=== PATIENT | male | born 1950 | race Caucasian/White ===

== ENCOUNTER 2017-03-09 11:37 | Emergency (ER) | payer MEDICARE ==
[2017-03-09] MEDS ORDERED: LORazepam INJ* 2 MG/ML 1 ML VIAL IV ONE (13:46)
[2017-03-09] MEDS ORDERED: Ketorolac INJ* 30 MG/ML 1 ML VIAL IV ONE (13:46)
--- NOTE | 2017-03-09 14:15 | RAD ---
INDICATION: Left-sided headache. COMPARISON: Comparison is made with a prior MRI of the brain from September 11, 2016. TECHNIQUE: Contiguous axial sections of the brain were obtained from the skull base to the vertex without contrast. FINDINGS: The ventricles, cisterns and sulci are enlarged consistent with age-related atrophy. There are small areas of decreased density in the subcortical and periventricular white matter suggestive of mild chronic small vessel ischemic changes. No other focal abnormality or mass effect is seen. There is no evidence for hemorrhage. There is mucosal thickening within the ethmoid air cells and air-fluid level within the left maxillary sinus suggestive of acute sinusitis. The sphenoid, frontal sinuses appear clear. The mastoid air cells appear clear. IMPRESSION: 1. NO EVIDENCE FOR ACUTE INTRACRANIAL NORMALITY. 2. FINDINGS SUGGESTIVE OF ACUTE LEFT MAXILLARY SINUSITIS.
[2017-03-09 14:36] LABS: Hematocrit 43 % (42-52); Hemoglobin 14.3 g/dl (14.0-18.0); Mean Corpuscular HGB Conc 34 g/dl (31-36); Mean Corpuscular Hemoglobin 28 pg (27-31); Mean Corpuscular Volume 83 fL (80-94); Mean Platelet Volume 8 um3 (7.4-10.4); Red Blood Count 5.14 10^6/ul (4.0-5.4); Red Cell Distribution Width 15 % (10.5-15); White Blood Count 8.9 10^3/ul (3.5-10.8)
[2017-03-09 14:51] LABS: BUN/Creatinine Ratio 15.2 (8-20); Calcium 9.9 mg/dL (8.6-10.3); EGFR African American 105.2 (>60); EGFR Non-African American 81.8 (>60); Globulin 3.9 g/dL (2-4); Potassium 4.3 mmol/L (3.5-5.0); Total Bilirubin 0.8 mg/dL (0.2-1.0); Total Protein 7.9 g/dL (6.4-8.9)
[2017-03-09 15:35] LABS: Erythrocyte Sed Rate 49 mm/Hr (0-40)
[2017-03-09 15:39] VITALS: BP 129/60
--- NOTE | 2017-03-09 22:06 | ED ---
Erasto Valentin Aidan, scribed for Dilip Herron MD on 03/09/17 at 1448 . Headache - HPI Summary HPI Summary: 67 y/o male presents to the ED via transfer from [facility] for evaluation of an acute, constant, moderate (5-6/10), back left-sided VERDIN that has persisted since 0300 this morning. Though the pain is steady, moving his neck causes the pain to radiate down the back of his neck. Hx of melanoma, for which he is taking Optivo. Pt denies any allergies to medications and requests something for his pain. Associated symptoms include some left-sided facial pain. - History Of Current Complaint Chief Complaint: EDFacialInjury Stated Complaint: FACIAL PAIN Time Seen by Provider: 03/09/17 13:27 Hx Obtained From: Patient Last Known Well Date: unknown Onset/Duration: Sudden Onset, Started hours ago, Still Present Initially Headache Was: Moderate Currently Pain Is: Moderate Timing: Constant Character: Unable To Describe Location of Headache: Other: - back left side Radiates to: radiates down neck when Pt turns neck Aggravating Factor: Other - turning neck causes pain to radiate down the neck Allevating Factors: Other (Noted In Comments) - unknown Associated Signs And Symptoms: Other (Noted In Comments) - some left-sided facial pain - Risk Factors SDH Risk Factors: Male Temporal Arteritis Risk Factors: - Allergies/Home Medications Allergies/Adverse Reactions: Allergies Allergy/AdvReac Type Severity Reaction Status Date / Time No Known Allergies Allergy Verified 10/12/16 07:36 Home Medications: Home Medications Glimepiride (NF) 2 mg PO BID 03/09/17 [History Confirmed 03/09/17] Lisinopril TAB* [Prinivil TAB*] 20 mg PO DAILY 03/09/17 [History Confirmed 03/09] Warren-3 Fatty Acids [Fish Oil 1200 mg] 1 cap PO BID 03/09/17 [History Confirmed 03/09/17] Rosuvastatin (NF) [Crestor (NF)] 5 mg PO DAILY 03/09/17 [History Confirmed 03/09] metFORMIN* [Glucophage 1000 MG TAB *] 1,000 mg PO BID WITH MEALS 03/09/17 [ History Confirmed 03/09/17] PMH/Surg Hx/FS Hx/Imm Hx Endocrine/Hematology History: Reports: Hx Diabetes - TYPE 2 Cardiovascular History: Reports: Hx Hypertension Denies: Hx Pacemaker/ICD History: Denies: Hx Dialysis, Hx Renal Disease Sensory History: Denies: Hx Hearing Aid Psychiatric History: Denies: Hx Panic Disorder - Cancer History Cancer Type, Location and Year: MELANOMA Hx Chemotherapy: No Hx Radiation Therapy: No - Surgical History Surgery Procedure, Year, and Place: MELANOMA REMOVED - BACK. LYMPH NODE UNDER Rt ARM - REMOVED. PILONIDAL CYST Infectious Disease History: No Infectious Disease History: Denies: Traveled Outside the [place] in Last 30 Days - Family History Known Family History: Positive: Hypertension - Social History Occupation: Employed Full-time Lives: With Family Alcohol Use: None Substance Use Type: Reports: None Smoking Status (MU): Never Smoked Tobacco Review of Systems Constitutional: Negative Eyes: Negative ENT: Negative Cardiovascular: Negative Respiratory: Negative Gastrointestinal: Negative Genitourinary: Negative Musculoskeletal: Negative Skin: Negative Neurological: Other - some left-sided facial pain Positive: Headache. Negative: Weakness, Paresthesia, Numbness, Syncope, Slurred Speech Psychological: Normal All Other Systems Reviewed And Are Negative: Yes Physical Exam Triage Information Reviewed: Yes Vital Signs On Initial Exam: Initial Vitals Temp Pulse Resp BP Pulse Ox 97.4 F 57 18 166/62 98 03/09/17 11:43 03/09/17 11:43 03/09/17 11:43 03/09/17 11:43 03/09/17 11:43 Vital Signs Reviewed: Yes Appearance: Positive: Well-Appearing, No Pain Distress Skin: Positive: Warm, Skin Color Reflects Adequate Perfusion, Dry Head/Face: Positive: Normal Head/Face Inspection, Other - paracervical spasm, nontender over temporal artery, no trigger point Eyes: Positive: Normal ENT: Positive: Normal ENT inspection Neck: Positive: Supple, Nontender Respiratory/Lung Sounds: Positive: Clear to Auscultation, Breath Sounds Present Cardiovascular: Positive: RRR Abdomen Description: Positive: Nontender, Soft Bowel Sounds: Positive: Present Musculoskeletal: Positive: Normal Neurological: Positive: Normal, Sensory/Motor Intact, Alert, Oriented to Person Place, Time, CN Intact II-III, Reflexes Intact Psychiatric: Positive: Affect/Mood Appropriate - Ellen Coma Scale Coma Scale Total: 15 Diagnostics - Vital Signs Vital Signs Temp Pulse Resp BP Pulse Ox 03/09/17 14:18 16 03/09/17 12:28 97.4 F 57 18 166/62 98 03/09/17 11:43 97.4 F 57 18 166/62 98 - Laboratory Lab Results: Lab Results 03/09/17 Range/Units 14:15 WBC 8.9 (3.5-10.8) 10^3/ul RBC 5.14 (4.0-5.4) 10^6/ul Hgb 14.3 (14.0-18.0) g/dl Hct 43 (42-52) % MCV 83 (80-94) fL MCH 28 (27-31) pg MCHC 34 (31-36) g/dl RDW 15 (10.5-15) % Plt Count 165 (150-450) 10^3/ul MPV 8 (7.4-10.4) um3 Neut % (Auto) 66.8 (38-83) % Lymph % (Auto) 18.7 L (25-47) % Christian % (Auto) 9.9 H (1-9) % Eos % (Auto) 4.0 (0-6) % Baso % (Auto) 0.6 (0-2) % Absolute Neuts (auto) 6.0 (1.5-7.7) 10^3/ul Absolute Lymphs (auto) 1.7 (1.0-4.8) 10^3/ul Absolute Monos (auto) 0.9 H (0-0.8) 10^3/ul Absolute Eos (auto) 0.4 (0-0.6) 10^3/ul Absolute Basos (auto) 0.1 (0-0.2) 10^3/ul Absolute Nucleated RBC 0.01 10^3/ul Nucleated RBC % 0.1 ESR Pending Result Diagrams: 03/09/17 14:15 03/09/17 14:15 Lab Statement: Any lab studies that have been ordered have been reviewed, and results considered in the medical decision making process. - CT BRAIN CT CT Interpretation: No Acute Changes - IMPRESSION: 1. NO EVIDENCE FOR ACUTE INTRACRANIAL NORMALITY. 2. FINDINGS SUGGESTIVE OF ACUTE LEFT MAXILLARY SINUSITIS. CT Interpretation Completed By: Radiologist Headache Course/Dx - Course Course Of Treatment: This is a 67 y/o male presenting via transfer from [facility] for evaluation of an acute, constant, moderate, back left- sided VERDIN and left-sided facial pain. He was found on DT to have a left-sided acute sinusitis and I think his headache is a combination of that and muscle tension on that side as he is tender. - Diagnoses Provider Diagnoses: Sinusitis Discharge - Discharge Plan Condition: Stable Disposition: HOME Discharge Disposition Comment: Please follow up with your primary care physician within 2 days. Prescriptions: Amoxicillin/Clavulanate TAB* [Augmentin TAB 875*] 1,000 mg PO BID #20 tab HYDROcodone/ACETAMIN 5-325 MG* [Alva 5-325 TAB*] 1 tab PO Q6H PRN #20 tab MDD 4 PRN Reason: Pain Patient Education Materials: Sinusitis (ED) Referrals: Dionicio Keenan MD [Primary Care Provider] - The documentation as recorded by the Erasto moise Aidan accurately reflects the service I personally performed and the decisions made by me, Dilip Herron MD.
== END 2017-03-09 16:20 | disposition home or self-care (01) ==
LOC: ED 11:37
DX: J32.9 Chronic sinusitis, unspecified (principal)
CPT/HCPCS: 36415; 70450; 80053; 85025; 85652; 96374; 99283; J1885; J2060

== ENCOUNTER 2018-03-30 19:04 | Inpatient (IN) | payer MEDICARE ==
[2018-03-30] MEDS ORDERED: NS 0.9% 1000 ML*IV.FLUID IV ONE (19:30)
[2018-03-30 20:02] LABS: ABS Basophils 0 10^3/ul (0-0.2); ABS Eosinophils 0.3 10^3/ul (0-0.6); ABS Lymphocytes 0.7 10^3/ul (1.0-4.8); ABS Monocytes 0.3 10^3/ul (0-0.8); ABS Neutrophils 3.7 10^3/ul (1.5-7.7); ABS Nucleated RBC 0 10^3/ul; Eosinophil % 5.2 % (0-6); Hematocrit 42 % (42-52); Hemoglobin 14.1 g/dl (14.0-18.0); Mean Corpuscular HGB Conc 34 g/dl (31-36); Mean Corpuscular Hemoglobin 29 pg (27-31); Mean Corpuscular Volume 87 fL (80-94); Mean Platelet Volume 7.1 um3 (7.4-10.4); Nucleated Red Blood Cells % 0.1; Platelet Count 182 10^3/ul (150-450); Red Blood Count 4.81 10^6/ul (4.0-5.4); Red Cell Distribution Width 14 % (10.5-15); White Blood Count 5.1 10^3/ul (3.5-10.8)
[2018-03-30 20:20] LABS: EGFR Non-African American 28.9 (>60)
--- NOTE | 2018-03-30 20:32 | RAD ---
HISTORY: Fever and cancer patient COMPARISONS: October 12, 2016 VIEWS: 4: Frontal dual-energy and lateral views of the chest. FINDINGS: CARDIOMEDIASTINAL SILHOUETTE: The cardiomediastinal silhouette is normal. NAOMI: The naomi are normal. PLEURA: There is blunting of left costophrenic angle. LUNG PARENCHYMA: The lungs are clear. ABDOMEN: The upper abdomen is clear. There is no subphrenic gas. BONES AND SOFT TISSUES: Degenerative changes are noted along the spine. OTHER: A left-sided chest port is noted from a subclavian approach with the tip overlying the cavoatrial junction. IMPRESSION: SMALL LEFT PLEURAL EFFUSION VERSUS CHRONIC PLEURAL THICKENING.
[2018-03-30] MEDS ORDERED: NS 0.9% 1000 ML* 1,000 ML IV ONE (20:50)
[2018-03-30] MEDS ORDERED: Sodium Polystyrene ORAL.SOL* 15 GM/60 ML BTL PO ONE (21:42)
[2018-03-30] MEDS ORDERED: oxyCODONE TAB* 5 MG TAB PO PRN (21:44)
[2018-03-30] MEDS ORDERED: Dextrose 50% Syringe 50 ML* 25 GM/50 ML SYRINGE IV PUSH PRN (21:44)
[2018-03-30] MEDS ORDERED: Acetaminophen TAB* 325 MG PO PRN (21:46)
[2018-03-30] MEDS ORDERED: Ondansetron 40 MG VIAL* 2 MG/ML 20 ML VIAL IV PRN (22:25)
--- NOTE | 2018-03-30 22:29 | ED ---
Alfredo Valentin Jennifer, scribed for Neal Ramírez MD on 03/30/18 at 2030 . HPI Febrile Illness - HPI Summary HPI Summary: The patient is a 68 year old male who presents with fever and generalized fatigue that began about 8 days ago. The patient states it all began when he was diagnosed with cellulitis in his right put and put on Bactrim 10 days ago. His PCP increased him from one pill twice a day to two pills twice a day 2 days later because his cellulitis had not improved, which is when the fever began. The patient then saw Dr. Worthington, burn out tender lace, where his labs showed his potassium levels was too high. Dr. Worthington recommended the patient come to the ED to recheck his potassium levels. Patient complains this feels similar to when he had walking pneumonia. He denies general pain, cough, and dysuria. - History of Current Complaint Chief Complaint: EDFever Hx Obtained From: Patient Onset/Duration: Started Days Ago - 8 days, Still Present Timing: Constant Initial Severity: Mild Current Severity: None Pain Intensity: 0 Pain Scale Used: 0-10 Numeric Aggravating Factors: Nothing Alleviating Factors: Nothing Associated Signs and Symptoms: Other: - high potassium, fever, generalized fatigue. NEG: general pain, cough, dysuria - Allergy/Home Medications Allergies/Adverse Reactions: Allergies Allergy/AdvReac Type Severity Reaction Status Date / Time No Known Allergies Allergy Verified 03/30/18 19:13 Home Medications: Home Medications Acarbose [Acarbose] 1 tab PO TID WITH MEALS 03/30/18 [History Confirmed 03/30/18 ] Oxycodone HCl [Oxycodone HCl] 1 tab PO Q8HR PRN 03/30/18 [History Confirmed ] Sulfamethox/Trimethoprim DS* [Bactrim DS 800/160 TAB*] 1 tab PO BID 03/30/18 [ History Confirmed 03/30/18] PMH/Surg Hx/FS Hx/Imm Hx Endocrine/Hematology History: Reports: Hx Diabetes - TYPE 2 Cardiovascular History: Reports: Hx Hypertension Denies: Hx Pacemaker/ICD History: Denies: Hx Dialysis, Hx Renal Disease Sensory History: Denies: Hx Hearing Aid Psychiatric History: Denies: Hx Panic Disorder - Cancer History Cancer Type, Location and Year: MELANOMA Hx Chemotherapy: No Hx Radiation Therapy: No - Surgical History Surgery Procedure, Year, and Place: MELANOMA REMOVED - BACK. LYMPH NODE UNDER Rt ARM - REMOVED. PILONIDAL CYST Infectious Disease History: No Infectious Disease History: Reports: Hx of Known/Suspected MRSA - right foot Denies: Traveled Outside the [place] in Last 30 Days - Family History Known Family History: Positive: Hypertension - Social History Alcohol Use: None Substance Use Type: Reports: None Smoking Status (MU): Never Smoked Tobacco Review of Systems Positive: Fever, Fatigue, Other - High potassium level Negative: Cough Negative: dysuria Negative: Myalgia All Other Systems Reviewed And Are Negative: Yes Physical Exam - Summary Physical Exam Summary: Appearance: Well-appearing, Well-nourished Skin: Warm Eyes: Normal ENT: Normal Neck: Supple, nontender Respiratory: Clear to auscultation Cardiovascular: Normal S1, S2. No murmurs. Normal distal pulses in tibial and radial bilaterally. Abdomen: Soft, nontender Musculoskeletal: Normal, Strength/ROM Intact Neurological: Normal, A&Ox3 Psychiatric: Normal General: No acute distress Triage Information Reviewed: Yes Vital Signs On Initial Exam: Initial Vitals Temp Pulse Resp BP Pulse Ox 101.0 F 51 16 128/61 100 03/30/18 19:09 03/30/18 19:09 03/30/18 19:09 03/30/18 19:09 03/30/18 19:09 Vital Signs Reviewed: Yes Diagnostics - Vital Signs Vital Signs Temp Pulse Resp BP Pulse Ox 03/30/18 19:09 101.0 F 51 16 128/61 100 - Laboratory Lab Results: Lab Results 03/30/18 03/30/18 Range/Units 19:51 19:51 WBC 5.1 (3.5-10.8) 10^3/ul RBC 4.81 (4.0-5.4) 10^6/ul Hgb 14.1 (14.0-18.0) g/dl Hct 42 (42-52) % MCV 87 (80-94) fL MCH 29 (27-31) pg MCHC 34 (31-36) g/dl RDW 14 (10.5-15) % Plt Count 182 (150-450) 10^3/ul MPV 7.1 L (7.4-10.4) um3 Neut % (Auto) 74.0 (38-83) % Lymph % (Auto) 14.0 L (25-47) % Henderson % (Auto) 6.1 (0-7) % Eos % (Auto) 5.2 (0-6) % Baso % (Auto) 0.7 (0-2) % Absolute Neuts (auto) 3.7 (1.5-7.7) 10^3/ul Absolute Lymphs (auto) 0.7 L (1.0-4.8) 10^3/ul Absolute Monos (auto) 0.3 (0-0.8) 10^3/ul Absolute Eos (auto) 0.3 (0-0.6) 10^3/ul Absolute Basos (auto) 0 (0-0.2) 10^3/ul Absolute Nucleated RBC 0 10^3/ul Nucleated RBC % 0.1 Sodium 127 L (139-145) mmol/L Potassium 5.7 H (3.5-5.0) mmol/L Chloride 99 L (101-111) mmol/L Carbon Dioxide 21 L (22-32) mmol/L Anion Gap 7 (2-11) mmol/L BUN 27 H (6-24) mg/dL Creatinine 2.26 H (0.67-1.17) mg/dL Est GFR ( Amer) 37.2 (>60) Est GFR (Non-Af Amer) 28.9 (>60) BUN/Creatinine Ratio 11.9 (8-20) Glucose 197 H (70-100) mg/dL Calcium 9.6 (8.6-10.3) mg/dL Total Bilirubin 0.50 (0.2-1.0) mg/dL AST 44 H (13-39) U/L ALT 46 (7-52) U/L Alkaline Phosphatase 40 (34-104) U/L Total Protein 7.8 (6.4-8.9) g/dL Albumin 4.0 (3.2-5.2) g/dL Globulin 3.8 (2-4) g/dL Albumin/Globulin Ratio 1.1 (1-3) Result Diagrams: 03/30/18 19:51 03/30/18 19:51 Lab Statement: Any lab studies that have been ordered have been reviewed, and results considered in the medical decision making process. - Radiology CXR Xray Interpretation: Positive (See Comments) - SMALL LEFT PLEURAL EFFUSION VERSUS CHRONIC PLEURAL THICKENING. Dr. Ramírez has reviewed this report. Radiology Interpretation Completed By: Radiologist - EKG 2119 Cardiac Rate: Bradycardia EKG Rhythm: Sinus Bradycardia - 56 BPM Ectopy: None EKG Interpretation: No acute ischemic ST changes Course/Dx - Course Assessment/Plan: Patient seen to have hyperkalemia, hyponatremia, and acute kidney injury on labs today. Currently in no acute distress, admitted for further workup and treatment - Diagnoses Provider Diagnoses: Hyperkalemia, Acute kidney injury, Hyponatremia - Provider Notifications Discussed Care Of Patient With: Adonay Craig Time Discussed With Above Provider: 21:38 Instructed by Provider To: Admit As Inpatient Discharge - Sign-Out/Discharge Documenting (check all that apply): Discharge/Admit/Transfer - Discharge Plan Condition: Stable Disposition: ADMITTED TO [facility] - Billing Disposition and Condition Condition: STABLE Disposition: [facility] The documentation as recorded by the Alfredo moise Jennifer accurately reflects the service I personally performed and the decisions made by , Neal Ramírez MD.
[2018-03-30] MEDS ORDERED: Vancomycin(*) 1,500 MG in NS 0.9% 250 ML* 250 ML IVPB ONE (23:00)
[2018-03-30] MEDS: NS 0.9% 1000 ML* 1,000 ML IV SCH (23:26)
[2018-03-30 23:41] LABS: Urine Appearance Cloudy; Urine Blood Negative (Negative); Urine Color Yellow; Urine Ketones Negative (Negative); Urine Protein Negative (Negative); Urine Urobilinogen Negative (Negative)
[2018-03-30] MEDS ORDERED: Famotidine IV* 10 MG/ML 2 ML (20 mg) IV SLOW PU ONE (23:58)
[2018-03-30] MEDS ORDERED: diPHENhydraMINE PO* 50 MG PO ONE (23:58)
[2018-03-31] MEDS ORDERED: diPHENhydraMINE PO* 50 MG ONE (00:13)
--- NOTE | 2018-03-31 00:38 | HP ---
CC: Dr. Dionicio Keenan * HISTORY AND PHYSICAL: DATE OF ADMISSION: 03/30/18 PRIMARY CARE PROVIDER: Dr. Dionicio Keenan. ATTENDING PHYSICIAN: Adonay Craig MD * (dictated by Chaparrita Mcgee NP) CHIEF COMPLAINT: Fever, right foot cellulitis. HISTORY OF PRESENT ILLNESS: Mr. Fuller is a 68-year-old male with past medical history significant for melanoma, diabetes mellitus, hypertension, hyperlipidemia, and a "leaky valve" who states that approximately 8 days ago he began having fevers and generalized fatigue. He states that he was seen at [facility] and was prescribed Cipro for a right foot cellulitis. He then followed up with his primary care provider who had done a wound culture and started him on Bactrim DS. The patient states that he had been taking that 2 pills twice a day until it was causing GI upset and then he was decreased to 1 pill twice daily. The patient reports a fever up to 101.7 at home. He was seen by his tripper, Dr. Worthington, where he had lab showing elevated potassium and it was recommended that he come to the emergency room to have his potassium level rechecked. The patient also complains of feeling similar to when he had a walking pneumonia in the past. He denies any cough or shortness of breath. He reports fevers, chills. Denies chest pain, shortness of breath, nausea, vomiting. He reports diarrhea a few days ago while taking the increased dose of Bactrim. He denies any urinary symptoms such as urgency, frequency. He feels as though he is able to fully empty his bladder. Due to Dr. Worthington's recommendation, he presented to the emergency room for further evaluation. While in the emergency room, he had labs showing a potassium of 5.7, which is down from 3 days prior when it was 5.9. His creatinine is elevated when compared to several days prior, at which time on 03/27/18, it was 1.9, on , it was 1.73, today is 2.26. The patient received blood cultures, a liter of IV fluid. He had a chest x-ray showing small left pleural effusion versus chronic pleural thickening. Due to his hyperkalemia and acute renal failure, the hospitalists were asked to evaluate the patient for admission. The patient states that he went to [place] and had a pedicure and they shaved a callus and opened up the skin on his right foot. PAST MEDICAL HISTORY: 1. Melanoma. 2. Diabetes mellitus. 3. Hyperlipidemia. 4. Hypertension. 5. "Leaky valve." PAST SURGICAL HISTORY: Status post excision of melanoma from his back. HOME MEDICATIONS: Include: 1. Oxycodone 5 mg oral every 8 hours as needed for pain. 2. Acarbose 1 tablet oral 3 times daily with meals. 3. Metformin 1000 mg oral twice daily. 4. Crestor 5 mg oral daily. 5. Fish oil 1200 mg oral twice daily. 6. Metoprolol succinate 100 mg oral daily. 7. Lisinopril 20 mg oral daily. 8. Glimepiride 2 mg oral twice daily. 9. Aspirin 81 mg oral daily. 10. Bactrim DS 1 tablet oral twice daily. ALLERGIES: No known drug allergies. FAMILY HISTORY: The patient denies any family history of coronary artery disease. His father and paternal grandmother had a history of diabetes. His father had a history of liver cancer. SOCIAL HISTORY: He denies tobacco use or recreational drug use. He reports that he quit drinking alcohol a few weeks ago, prior to that he drank up to daily. His , Geri Fuller, will be his surrogate decision maker in the event he is unable to make decisions for himself. REVIEW OF SYSTEMS: I performed an 11-point review of systems. All the pertinent positives and negatives are mentioned in the history of present illness. The remaining review of systems are negative. PHYSICAL EXAMINATION GENERAL APPEARANCE: The patient is alert, pleasant and appears to be in no acute distress. VITAL SIGNS: Temperature 100.7, heart rate 60, respiratory rate 17, O2 sat 97% on room air, blood pressure 118/75. HEENT: Normocephalic, atraumatic. Pupils are equal and reactive to light. Extraocular movements are intact. RESPIRATORY: There is no accessory muscle use. The lungs are clear to auscultation bilaterally. CARDIOVASCULAR: Regular rate and rhythm. S1 and S2 present. There are no murmurs, rubs, or gallops heard. ABDOMEN: Soft, large, and nontender. There are bowel sounds present x4. EXTREMITIES: There is no lower extremity edema. DP and PT pulses are 2+ and symmetric. MUSCULOSKELETAL: There is no clubbing or cyanosis noted. The patient exhibits good strength in all extremities. NEUROLOGICAL: The patient is alert and oriented x4. Cranial nerves II through XII are grossly intact. PSYCHOLOGICAL: The patient is calm and cooperative. SKIN: The patient is flush in his upper torso and face. On his right lateral foot near his fifth toe, he has peeled skin with mild erythema and what appears to be a diabetic foot ulcer at the base of his fifth toe on the ball of his foot. DIAGNOSTIC STUDIES/LABORATORY DATA: Sodium 127, potassium 5.7, chloride 99, CO2 of 21, BUN 27, creatinine 2.26, glucose 197. White blood cell count 5.1, hemoglobin 14.1, hematocrit 42, platelet count 182,000. EKG shows a sinus reyes and a rate of 56. There are no acute signs of ischemia. There are not peak T waves. There are no previous EKGs for comparison. Chest x-ray from today. Radiologist's impression: Small left pleural effusion versus chronic pleural thickening. IMPRESSION: Mr. Fuller is a 68-year-old male with past medical history significant for melanoma, diabetes mellitus, hypertension, hyperlipidemia, and a leaky valve, who presented to the emergency room with complaints of fever and generalized fatigue that started approximately 8 days ago. He was diagnosed with cellulitis and placed on Bactrim by his primary care provider for MRSA in his right lower extremity. He will be admitted as an observation for acute renal failure and MRSA cellulitis. ASSESSMENT/PLAN: 1. Acute renal failure. I suspect this is secondary to a combination of the patient becoming dehydrated, not feeling well in addition to taking double the maximum dose of Bactrim for several days in addition to taking his lisinopril and diabetes medications. The patient has already received a liter of fluid in the emergency room. We will continue IV hydration overnight. We will check a FENa, urinalysis and recheck his creatinine in the morning. We will avoid nephrotoxic agents, Bactrim and his antihyperglycemic medications will be held. 2. MRSA cellulitis. The patient has decreased erythema from the markings previously placed on his right foot and has minimal erythema at the lateral aspect of his foot near his fifth toe. He does have what could be a diabetic foot ulcer at the base of his left toe on his foot that he states is secondary to a wound from a pedicure. I am going to check an ESR and CRP; if they are elevated, I would recommend considering further imaging to evaluate for possible osteomyelitis. For now, I am going to place him on vancomycin. He has had blood cultures drawn. He does not have an elevated lactic acid. We will recheck CBC in the morning. He does not currently have leukocytosis. He was febrile in the emergency room. He is not meeting sepsis criteria at this time and is nontoxic appearing. We will attempt to get another wound culture on his foot today. 3. Hyperkalemia. I suspect this is secondary to acute renal failure. He will receive a dose of Kayexalate tonight and we will recheck his labs in the morning. 4. Diabetes. He will have fingersticks a.c. and h.s. He will be on a consistent carbohydrate diet. I am going to hold all of his home antihyperglycemic medications and just place him on a lispro sliding scale. 5. Hypertension. He will be continued on his metoprolol, but for now, I am going to hold his lisinopril in the setting of an acute renal failure. 6. Hyperlipidemia. He will be continued on a statin. 7. Fluids, electrolytes and nutrition: Consistent carbohydrate diet. 8. Code status. Full code. 9. DVT prophylaxis. He is at high risk and will have subcu heparin. 10. Disposition. Observation. TIME SPENT: Time for this admission was approximately 60 minutes, greater than half of that was spent with the patient and his discussing medications, past medical history, the events leading up to his arrival today, and performing a physical examination. The case has been reviewed with the attending , Dr. Craig, who agrees with the plan of care. Reviewed by CHAPARRITA MCGEE, AUTUMN-C 04/03/18 1543 [id number]/[facility] #: [id number] [place]ANCHO
[2018-03-31] MEDS ORDERED: Vancomycin per Pharmacy* NOTE FOLLOW UP PRN (02:31)
[2018-03-31] MEDS: Heparin VIAL(*) 5000 UNITS/ML VIAL (FIVE THOUSAND) SUBCUT SCH ×3 (05:38→21:05)
[2018-03-31 07:44] LABS: EGFR Non-African American 39.6 (>60)
[2018-03-31] MEDS: Aspirin EC TAB* 81 MG TAB.EC PO SCH (07:49)
[2018-03-31] MEDS: Metoprolol Succinate XL TAB* 100 MG PO SCH (07:49)
[2018-03-31] MEDS: Atorvastatin* 10 MG TAB PO SCH (07:49)
[2018-03-31] MEDS: NS 0.9% 1000 ML* 1,000 ML IV SCH (07:50)
[2018-03-31] MEDS: Insulin LISPRO* 1 UNITS UNIT SUBCUT SCH ×3 (07:53→17:45)
[2018-03-31 08:03] LABS: ABS Basophils 0 10^3/ul (0-0.2); ABS Eosinophils 0.2 10^3/ul (0-0.6); ABS Lymphocytes 0.8 10^3/ul (1.0-4.8); ABS Monocytes 0.3 10^3/ul (0-0.8); ABS Neutrophils 1.9 10^3/ul (1.5-7.7); ABS Nucleated RBC 0 10^3/ul; Eosinophil % 5.3 % (0-6); Hematocrit 38 % (42-52); Hemoglobin 12.6 g/dl (14.0-18.0); Lymphocyte % 25.8 % (25-47); Mean Corpuscular HGB Conc 34 g/dl (31-36); Mean Corpuscular Hemoglobin 29 pg (27-31); Mean Corpuscular Volume 86 fL (80-94); Mean Platelet Volume 7.5 um3 (7.4-10.4); Nucleated Red Blood Cells % 0.4; Platelet Count 142 10^3/ul (150-450); Red Blood Count 4.35 10^6/ul (4.0-5.4); Red Cell Distribution Width 14 % (10.5-15); White Blood Count 3.2 10^3/ul (3.5-10.8)
--- NOTE | 2018-03-31 10:28 | PN ---
Subjective Date of Service: 03/31/18 Interval History: denies chest pain or shortness of breath, denies fever or chills this AM, Denies abd pain , n/v, reports diarrhea since the increase of PO bactrim as an outpt. c/o facial flushing that started prior to the start of vancomycin, developed torso red flat rash yesterday. denies itching or pain. Family History: Unchanged from Admission Social History: Unchanged from Admission Past Medical History: Unchanged from Admission Objective Active Medications: Acetaminophen (Tylenol Tab*) 650 mg PO Q4H PRN PRN Reason: FEVER/PAIN Aspirin (Aspirin Ec Tab*) 81 mg PO DAILY [facility] Last Admin: 03/31/18 07:49 Dose: 81 mg Atorvastatin Calcium (Lipitor*) 10 mg PO DAILY [facility] PRN Reason: Protocol Last Admin: 03/31/18 07:49 Dose: 10 mg Dextrose (D50w Syringe 50 Ml*) 12.5 gm IV PUSH .FOR FS < 60 - SS PRN PRN Reason: FS < 60 Heparin Sodium (Porcine) (Heparin Vial(*)) 5,000 units SUBCUT Q8HR [facility] Last Admin: 03/31/18 05:38 Dose: 5,000 units Sodium Chloride (Ns 0.9% 1000 Ml*) 1,000 mls @ 125 mls/hr IV PER RATE [facility] Last Admin: 03/31/18 07:50 Dose: 125 mls/hr Vancomycin HCl 750 mg/ Sodium (Chloride) 250 mls @ 83.333 mls/hr IVPB Q12H [facility] Insulin Human Lispro (Humalog*) 0 - 10 units SUBCUT AC [facility] PRN Reason: Protocol Last Admin: 03/31/18 07:53 Dose: Not Given Metoprolol Succinate (Toprol Xl Tab*) 100 mg PO DAILY [facility] Last Admin: 03/31/18 07:49 Dose: 100 mg Ondansetron HCl (Zofran 40 Mg Vial*) 4 mg IV Q6H PRN PRN Reason: NAUSEA Oxycodone HCl (Roxycodone Tab*) 5 mg PO Q8HR PRN PRN Reason: PAIN Pharmacy Consult (Vancomycin Per Pharmacy*) 1 note FOLLOW UP . PRN PRN Reason: PER PROTOCOL Pharmacy Profile Note (Vancomycin Trough Check) 1 note FOLLOW UP 1130 ONE Stop: 04/01/18 11:31 Vital Signs - 8 hr 03/31/18 03/31/18 03/31/18 03:13 04:15 07:41 Temperature 98.8 F 98.5 F Pulse Rate 56 57 Respiratory 16 19 21 Rate Blood Pressure 98/52 150/105 (mmHg) O2 Sat by Pulse 96 98 Oximetry 03/31/18 08:00 Temperature Pulse Rate Respiratory Rate Blood Pressure (mmHg) O2 Sat by Pulse 98 Oximetry Oxygen Devices in Use Now: None Appearance: healthy young elderly male, flushed face Eyes: No Scleral Icterus Ears/Nose/Mouth/Throat: NL Teeth, Lips, Gums, Mucous Membranes Moist Neck: NL Appearance and Movements; NL JVP, Trachea Midline Respiratory: Symmetrical Chest Expansion and Respiratory Effort, Clear to Auscultation Cardiovascular: NL Sounds; No Murmurs; No JVD, RRR, No Edema Abdominal: NL Sounds; No Tenderness; No Distention Extremities: No Edema, No Clubbing, Cyanosis Skin: - - flat red rash to torso, facial flushing Neurological: Alert and Oriented x 3, NL Muscle Strength and Tone Nutrition: Taking PO's Result Diagrams: 03/31/18 06:45 03/31/18 14:13 Additional Lab and Data: Lab Results 03/30/18 03/30/18 Range/Units 19:51 19:51 WBC 5.1 (3.5-10.8) 10^3/ul RBC 4.81 (4.0-5.4) 10^6/ul Hgb 14.1 (14.0-18.0) g/dl Hct 42 (42-52) % MCV 87 (80-94) fL MCH 29 (27-31) pg MCHC 34 (31-36) g/dl RDW 14 (10.5-15) % Plt Count 182 (150-450) 10^3/ul MPV 7.1 L (7.4-10.4) um3 Neut % (Auto) 74.0 (38-83) % Lymph % (Auto) 14.0 L (25-47) % [place] % (Auto) 6.1 (0-7) % Eos % (Auto) 5.2 (0-6) % Baso % (Auto) 0.7 (0-2) % Absolute Neuts (auto) 3.7 (1.5-7.7) 10^3/ul Absolute Lymphs (auto) 0.7 L (1.0-4.8) 10^3/ul Absolute Monos (auto) 0.3 (0-0.8) 10^3/ul Absolute Eos (auto) 0.3 (0-0.6) 10^3/ul Absolute Basos (auto) 0 (0-0.2) 10^3/ul Absolute Nucleated RBC 0 10^3/ul Nucleated RBC % 0.1 Sodium 127 L (139-145) mmol/L Potassium 5.7 H (3.5-5.0) mmol/L Chloride 99 L (101-111) mmol/L Carbon Dioxide 21 L (22-32) mmol/L Anion Gap 7 (2-11) mmol/L BUN 27 H (6-24) mg/dL Creatinine 2.26 H (0.67-1.17) mg/dL Est GFR ( Amer) 37.2 (>60) Est GFR (Non-Af Amer) 28.9 (>60) BUN/Creatinine Ratio 11.9 (8-20) Glucose 197 H (70-100) mg/dL Calcium 9.6 (8.6-10.3) mg/dL Total Bilirubin 0.50 (0.2-1.0) mg/dL AST 44 H (13-39) U/L ALT 46 (7-52) U/L Alkaline Phosphatase 40 (34-104) U/L Total Protein 7.8 (6.4-8.9) g/dL Albumin 4.0 (3.2-5.2) g/dL Globulin 3.8 (2-4) g/dL Albumin/Globulin Ratio 1.1 (1-3) Microbiology and Other Data: Microbiology 03/30/18 22:45 Skin and Soft Tissue MRSA/MSSA (PCR - Final Foot Right Mrsa Negative S.aureus Negative Gram Stain - Final 03/30/18 23:38 Nasal Screen MRSA (PCR)([place]) - Final Nasal Mrsa Not Detected Assess/Plan/Problems-Billing Assessment: Mr. Fuller is a 68 y.o male with past medical hx of melanoma, dm, HTN, HLD admitted for right foot cellulitis , fever, and GARETH given IVF and started on vancomycin . - Patient Problems (1) Acute kidney injury Current Visit: Yes Status: Acute Code(s): N17.9 - ACUTE KIDNEY FAILURE, UNSPECIFIED SNOMED Code(s): 15303845 Comment: creatinine improving will continue IV fluids repeat BMP potassium 4.7 creatinine continues to improve 1.49 (2) Cellulitis Current Visit: Yes Status: Acute Code(s): L03.90 - CELLULITIS, UNSPECIFIED SNOMED Code(s): 076925471 Comment: MRSA foot wound culture negative Will continue on vanomycin afebrile this AM (3) Diabetes Current Visit: Yes Status: Acute Code(s): E11.9 - TYPE 2 DIABETES MELLITUS WITHOUT COMPLICATIONS SNOMED Code(s): 71795827 Comment: finger stick Lispro sliding scale (4) Hypertension Current Visit: Yes Status: Acute Code(s): I10 - ESSENTIAL (PRIMARY) HYPERTENSION SNOMED Code(s): 26820845 Comment: continue metoprolol (5) Hyperlipidemia Current Visit: Yes Status: Acute Code(s): E78.5 - HYPERLIPIDEMIA, UNSPECIFIED SNOMED Code(s): 45798168 Comment: Continue lipitor (6) DVT prophylaxis Current Visit: Yes Status: Acute Code(s): CAE4727 - SNOMED Code(s): 788090889 Comment: heparin SubQ (7) Full code status Current Visit: Yes Status: Acute Code(s): Z78.9 - OTHER SPECIFIED HEALTH STATUS SNOMED Code(s): 493805536 Status and Disposition: inpatient
[2018-03-31] MEDS: Vancomycin(*) 750 MG in NS 0.9% 250 ML* 250 ML IVPB SCH ×2 (12:33→23:33)
[2018-03-31 14:36] LABS: EGFR Non-African American 46.8 (>60)
--- NOTE | 2018-03-31 19:10 | RAD ---
HISTORY: The right foot COMPARISONS: None VIEWS: 2, Frontal and lateral views of the right foot FINDINGS: BONE DENSITY: Normal. BONES: There is no displaced fracture. There is no appreciable erosion or periosteal reaction. JOINTS: There is mild osteoarthritis of the midfoot. There is osteoarthritis of the first MTP joint. ALIGNMENT: There is no dislocation. SOFT TISSUES: There is peripheral arterial calcification. OTHER FINDINGS: None. IMPRESSION: 1. OSTEOARTHRITIS. 2. PERIPHERAL ARTERIAL DISEASE. 3. NO APPRECIABLE EROSION OR PERIOSTEAL REACTION. PLAIN FILM FINDINGS OF OSTEOMYELITIS ARE RELATIVELY LATE FINDINGS. IF THERE IS PERSISTENT CLINICAL CONCERN FOR OSTEOMYELITIS, RECOMMEND CORRELATION WITH FOLLOWUP IMAGING, THREE-PHASE BONE SCANNING, WHITE BLOOD CELL SCAN, AND/OR MRI OF THE AFFECTED REGION.
[2018-04-01] MEDS: Heparin VIAL(*) 5000 UNITS/ML VIAL (FIVE THOUSAND) SUBCUT SCH (04:46)
[2018-04-01 06:15] LABS: ABS Basophils 0 10^3/ul (0-0.2); ABS Eosinophils 0.2 10^3/ul (0-0.6); ABS Lymphocytes 1.2 10^3/ul (1.0-4.8); ABS Monocytes 0.3 10^3/ul (0-0.8); ABS Neutrophils 1.5 10^3/ul (1.5-7.7); ABS Nucleated RBC 0 10^3/ul; Eosinophil % 5.6 % (0-6); Hematocrit 34 % (42-52); Hemoglobin 11.9 g/dl (14.0-18.0); Mean Corpuscular HGB Conc 35 g/dl (31-36); Mean Corpuscular Hemoglobin 29 pg (27-31); Mean Corpuscular Volume 85 fL (80-94); Mean Platelet Volume 7.1 um3 (7.4-10.4); Nucleated Red Blood Cells % 0.1; Platelet Count 126 10^3/ul (150-450); Red Blood Count 4.04 10^6/ul (4.0-5.4); Red Cell Distribution Width 15 % (10.5-15); White Blood Count 3.2 10^3/ul (3.5-10.8)
[2018-04-01 06:39] LABS: EGFR Non-African American 66.4 (>60)
[2018-04-01] MEDS: Metoprolol Succinate XL TAB* 100 MG PO SCH (08:01)
[2018-04-01] MEDS: Aspirin EC TAB* 81 MG TAB.EC PO SCH (08:08)
[2018-04-01] MEDS: Atorvastatin* 10 MG TAB PO SCH (08:08)
[2018-04-01] MEDS: Insulin LISPRO* 1 UNITS UNIT SUBCUT SCH ×2 (08:46→12:16)
--- NOTE | 2018-04-01 10:34 | CONSULT ---
<Donna Monique - Last Filed: 04/01/18 12:00> Consult Consult: Date of Service: 04/01/18 Infectious Disease Consult Note Requesting Service: Dr. Marisa Jasso Reason for Consult: right foot infection HPI: 68 yo M with pmhx of Melanoma on Nivolumab, HTN, D2M w/ neuropathy of feet, HLD , and recent R. foot cellulitis presents with fever, fatigue, hyperkalemia and rash. The patient presented to the hospital on 03/30/18 with hyperkalemia of 5.9, fatigue, red rash, and fever to 101.1F. The patient was sent by outpatient oncologist for hyperkalemia found on routine office labs. He had been of bactrim for a right foot cellulitis diagnosed by an outpatient PCP. Foot issues began on 02/25/18 when he went to get a pedicure resulting in a small abraison of the lateral part of his right foot. There was mild blood but patient felt minimal pain given his baseline numbness of b/l feet. States the tip cementer was smoothing out his calluses. He felt fine immediately after the pedicure. 2 weeks later, he noticed right foot swelling, redness, and pain. His PCP found a purulent collection near the prior abrasion and sent him home on an unspecified antibiotic for cellulitis. 2 days later after the culture returned positive for MRSA, he was switched to Bactrim, dosed as 1 pill daily. He was instructed to go to the ED if no improvement to get IV antibiotics. After 2 days on bactrim, he went to an OSH emergency room and got his bactrim dose increased to 2 tabs twice daily. After 4 days, he developed generalized malaise, and body aches and felt like he had the "flu". Then he went to his regular oncology clinic appointment and was found hyperkalemic to 5.9 then was sent to our ED. Upon arrival to our emergency room, vitals were T. 101.1 F, HR51, RR 16, BP 128/ 81, O2 100%. He was found with K 5.7 and Creatinine of 2.26 and no eosinophilia on cbc. He was found with red rash over his face and torso. He was given fluids. The bactrim was discontinued and was switched to vancomycin for the cellulitis. On review of systems, he denies headache, oral ulcers, vision changes, cough, chills, dyspnea, chest pain, abdominal pain, focalized weakness. He did have a loose bowel movement this hospitalization but had negative C.diff. 14 Point ROS is negative except as per HPI Past Medical History: Melanoma dx 2yrs ago on Nivolumab HTN HLD D2M w/ neuropathy of feet heart murmurs ( managed by outpatient enterprise integration developer) Past Surgical History: Melanoma resections on right side of back ( 2 years ago) R. axilla lymphnode removal x15 ( 2 yrs ago) Home Medication: Aspirin EC TAB* [Ecotrin EC Low Dose*] 81 mg PO DAILY 03/13/16 [History Confirmed 03/30/18] Metoprolol Succinate XL TAB* [Toprol XL TAB*] 100 mg PO DAILY 09/21/16 [History Confirmed 03/30/18] Glimepiride (NF) 2 mg PO BID 03/09/17 [History Confirmed 03/30/18] Lisinopril TAB* [Prinivil TAB*] 20 mg PO DAILY 03/09/17 [History Confirmed 03/30] [place]-3 Fatty Acids/Fish Oil [Fish Oil 1200 mg] 1 cap PO BID 03/09/17 [History Confirmed 03/30/18] Rosuvastatin (NF) [Crestor (NF)] 5 mg PO DAILY 03/09/17 [History Confirmed 03/30] metFORMIN* [Glucophage 1000 MG TAB *] 1,000 mg PO BID WITH MEALS 03/09/17 [ History Confirmed 03/30/18] Acarbose [Acarbose] 1 tab PO TID WITH MEALS 03/30/18 [History Confirmed 03/30/18 ] Oxycodone HCl [Oxycodone HCl] 1 tab PO Q8HR PRN 03/30/18 [History Confirmed ] Sulfamethox/Trimethoprim DS* [Bactrim DS 800/160 TAB*] 1 tab PO BID 03/30/18 [ History Confirmed 03/30/18] Inpatient Medications: Acetaminophen (Tylenol Tab*) 650 mg PO Q4H PRN PRN Reason: FEVER/PAIN Aspirin (Aspirin Ec Tab*) 81 mg PO DAILY [facility] Last Admin: 04/01/18 08:08 Dose: 81 mg Atorvastatin Calcium (Lipitor*) 10 mg PO DAILY [facility] PRN Reason: Protocol Last Admin: 04/01/18 08:08 Dose: 10 mg Dextrose (D50w Syringe 50 Ml*) 12.5 gm IV PUSH .FOR FS < 60 - SS PRN PRN Reason: FS < 60 Heparin Sodium (Porcine) (Heparin Vial(*)) 5,000 units SUBCUT Q8HR [facility] Last Admin: 04/01/18 04:46 Dose: 5,000 units Vancomycin HCl 750 mg/ Sodium (Chloride) 250 mls @ 83.333 mls/hr IVPB ONCE ONE Stop: 04/01/18 14:59 Last Admin: 04/01/18 11:40 Dose: 83.333 mls/hr Insulin Human Lispro (Humalog*) 0 - 10 units SUBCUT AC [facility] PRN Reason: Protocol Last Admin: 04/01/18 08:46 Dose: 1 units Metoprolol Succinate (Toprol Xl Tab*) 100 mg PO DAILY [facility] Last Admin: 04/01/18 08:01 Dose: Not Given Ondansetron HCl (Zofran 40 Mg Vial*) 4 mg IV Q6H PRN PRN Reason: NAUSEA Oxycodone HCl (Roxycodone Tab*) 5 mg PO Q8HR PRN PRN Reason: PAIN Pharmacy Consult (Vancomycin Per Pharmacy*) 1 note FOLLOW UP . PRN PRN Reason: PER PROTOCOL Allergies: Bactrim- reaction of rash, fever, gareth Family History: Mother: age 90 of natural causes Father: age 60 of liver disease; D2M Sister: health Paternal side of family: D2M Social History: to Has 3 adult children Former smoker quit at age 50; used to smoke 2 pcks daily x 32 years= 63 pck years Etoh: drinks few beers daily Illicit drugs: denies Physical Exam: Vital Signs - On Arrival Temp Pulse Resp BP Pulse Ox 38.3 C 51 16 128/61 100 03/30/18 19:09 03/30/18 19:09 03/30/18 19:09 03/30/18 19:09 03/30/18 19:09 Vital Signs - Most Recent Temp Pulse Resp BP Pulse Ox 36.9 C 68 18 102/56 98 04/01/18 07:46 04/01/18 08:00 04/01/18 08:14 04/01/18 08:01 04/01/18 07:46 General: redness of face, chest, arms; well appearing laying comfortably in bed , in nad HEENT: clear oropharynx with no oral ulcers and intact oral mucosa; peerl, clear sclera Neck: no jvd, no cervical lymphadenopathy Heart: systolic murmur throughout 12/18, regular rate, non palpable PMI Lungs: ctab no w/r/r Abdomen: obese, soft, nt, normoactive bs, no palpable organomegaly Skin: hypopigmented patches of skin on b/l legs/thighs and forearms, redness of face/torso/upper arms Extremities: R foot at anterior portion of 5th metatarsal with faint erythema and no edema; plantar surface of 5th metatarsal with a 1mm closed non draining, dry wound with surrounding thick callused skin that is desquamating at the borders; faint b/l pedal pulses; both legs warm with no edema Neuro: a& ox 3, numbness of b/l plantar surfaces of feet, 5/5 power b/l UE and LE, no focal neuro deficits Psych: calm affect, conversational Labs: Laboratory Last Values WBC 3.2 10^3/ul (3.5-10.8) L 04/01/18 06:00 RBC 4.04 10^6/ul (4.0-5.4) 04/01/18 06:00 Hgb 11.9 g/dl (14.0-18.0) L 04/01/18 06:00 Hct 34 % (42-52) L 04/01/18 06:00 MCV 85 fL (80-94) 04/01/18 06:00 MCH 29 pg (27-31) 04/01/18 06:00 MCHC 35 g/dl (31-36) 04/01/18 06:00 RDW 15 % (10.5-15) 04/01/18 06:00 Plt Count 126 10^3/ul (150-450) L 04/01/18 06:00 MPV 7.1 um3 (7.4-10.4) L 04/01/18 06:00 Neut % (Auto) 47.9 % (38-83) 04/01/18 06:00 Lymph % (Auto) 37.0 % (25-47) 04/01/18 06:00 [place] % (Auto) 8.7 % (0-7) H 04/01/18 06:00 Eos % (Auto) 5.6 % (0-6) 04/01/18 06:00 Baso % (Auto) 0.8 % (0-2) 04/01/18 06:00 Absolute Neuts (auto) 1.5 10^3/ul (1.5-7.7) 04/01/18 06:00 Absolute Lymphs (auto) 1.2 10^3/ul (1.0-4.8) 04/01/18 06:00 Absolute Monos (auto) 0.3 10^3/ul (0-0.8) 04/01/18 06:00 Absolute Eos (auto) 0.2 10^3/ul (0-0.6) 04/01/18 06:00 Absolute Basos (auto) 0 10^3/ul (0-0.2) 04/01/18 06:00 Absolute Nucleated RBC 0 10^3/ul 04/01/18 06:00 Nucleated RBC % 0.1 04/01/18 06:00 ESR 37 mm/Hr (0-40) 03/30/18 19:51 Sodium 133 mmol/L (139-145) L 04/01/18 06:00 Potassium 5.0 mmol/L (3.5-5.0) 04/01/18 06:00 Chloride 107 mmol/L (101-111) 04/01/18 06:00 Carbon Dioxide 22 mmol/L (22-32) 04/01/18 06:00 Anion Gap 4 mmol/L (2-11) 04/01/18 06:00 BUN 14 mg/dL (6-24) 04/01/18 06:00 Creatinine 1.10 mg/dL (0.67-1.17) 04/01/18 06:00 Est GFR ( Amer) 85.4 (>60) 04/01/18 06:00 Est GFR (Non-Af Amer) 66.4 (>60) 04/01/18 06:00 BUN/Creatinine Ratio 12.7 (8-20) 04/01/18 06:00 Glucose 119 mg/dL (70-100) H 04/01/18 06:00 POC Glucose (mg/dL) 135 mg/dL (70-100) H 04/01/18 08:12 Lactic Acid 1.0 mmol/L (0.5-2.0) 03/30/18 19:51 Calcium 8.7 mg/dL (8.6-10.3) 04/01/18 06:00 Total Bilirubin 0.50 mg/dL (0.2-1.0) 03/30/18 19:51 AST 44 U/L (13-39) H 03/30/18 19:51 ALT 46 U/L (7-52) 03/30/18 19:51 Alkaline Phosphatase 40 U/L (34-104) 03/30/18 19:51 C-Reactive Protein 21.27 mg/L (< 5.00) H 04/01/18 06:00 Total Protein 7.8 g/dL (6.4-8.9) 03/30/18 19:51 Albumin 4.0 g/dL (3.2-5.2) 03/30/18 19:51 Globulin 3.8 g/dL (2-4) 03/30/18 19:51 Albumin/Globulin Ratio 1.1 (1-3) 03/30/18 19:51 Urine Color Yellow 03/30/18 11:45 Urine Appearance Cloudy 03/30/18 11:45 Urine pH 5.0 (5-9) 03/30/18 11:45 Ur Specific [place] 1.020 (1.010-1.030) 03/30/18 11:45 Urine Protein Negative (Negative) 03/30/18 11:45 Urine Ketones Negative (Negative) 03/30/18 11:45 Urine Blood Negative (Negative) 03/30/18 11:45 Urine Nitrate Negative (Negative) 03/30/18 11:45 Urine Bilirubin Negative (Negative) 03/30/18 11:45 Urine Urobilinogen Negative (Negative) 03/30/18 11:45 Ur Leukocyte Esterase Negative (Negative) 03/30/18 11:45 Ur Random Creatinine 202.57 mg/dL 03/30/18 11:45 Ur Random Sodium 77 mmol/L 03/30/18 11:45 Urine Glucose Negative (Negative) 03/30/18 11:45 Vancomycin Trough 7.6 mcg/mL 04/01/18 10:28 Microbiology: Outpatient R. foot wound culture of purulent drainage: MRSA positive Inpatient: 03/30/18 Nasal MRSA swab: negative 03/30/18 R. foot MRSA swab of skin and soft tissue: negative 03/30/18 Blood cultures: negative x 2 Imaging: R. foot xray: osteoarthritis, peripheral arterial disease CXR: small L. pleural effusion EKG: sinus reyes Impression: 68 yo M with pmhx of Melanoma on Nivolumab, HTN, D2M w/ neuropathy of feet, HLD , and recent R. foot cellulitis presents with fever, fatigue, hyperkalemia and rash in setting high dose Bactrim. Hyperkalemia and GARETH likley secondary to Bactrim and Jared-Inhibitor combination acutely imparing renal function. Given delayed timing of rash, fever, fatigue constellation and absence of transaminitis/eosinophillia the presentation is more consistent with a delayed Type II Hypersensitivity Reaction. Overall, there is clinical improvement of R. foot purulent cellulitis. Plan -resolving R. foot purulent cellulitis -recommend 14 days of PO doxycycline for coverage of MRSA -follow up in outpatient Infectious Disease in clinic for monitoring -no indication for further imaging Examined and Discussed with Attending Dr. Reza King attending cosign pending Infectious Disease Consult Donna Monique MD, PGY2 [facility] Resident <Fernando REYES,Jhonathan Landrum - Last Filed: 04/01/18 12:03> Consult Consult: Seen, examined, and discussed with Dr Monique; I agree with her full note above. 1. Purulent cellulitis; I think too early for osteomyelitis, improving 2. bactrim delayed allergic reaction, improving
--- NOTE | 2018-04-01 10:44 | PN ---
Progress Note - Progress Note Date of Service: 04/01/18 SOAP: Subjective: []Feeling much better. Infection started 2 weeks ago, evaluated PCP. Cx + MRSA and started on Bactrim DS bid. Four days later infection worse, seen in ER. Bactrim DS to 2 tabs BID. Developed rash, fever, nausea and feeling poorly. Came to [facility] ER. Noted to have cellulites and increased CR. Changed to Vancomycin and feeling much better. Marked improvement in labs. Acetaminophen (Tylenol Tab*) 650 mg PO Q4H PRN PRN Reason: FEVER/PAIN Aspirin (Aspirin Ec Tab*) 81 mg PO DAILY [facility] Last Admin: 04/01/18 08:08 Dose: 81 mg Atorvastatin Calcium (Lipitor*) 10 mg PO DAILY [facility] PRN Reason: Protocol Last Admin: 04/01/18 08:08 Dose: 10 mg Dextrose (D50w Syringe 50 Ml*) 12.5 gm IV PUSH .FOR FS < 60 - SS PRN PRN Reason: FS < 60 Heparin Sodium (Porcine) (Heparin Vial(*)) 5,000 units SUBCUT Q8HR [facility] Last Admin: 04/01/18 04:46 Dose: 5,000 units Vancomycin HCl 750 mg/ Sodium (Chloride) 250 mls @ 83.333 mls/hr IVPB Q12H [facility] Last Admin: 03/31/18 23:33 Dose: 83.333 mls/hr Insulin Human Lispro (Humalog*) 0 - 10 units SUBCUT AC [facility] PRN Reason: Protocol Last Admin: 04/01/18 08:46 Dose: 1 units Metoprolol Succinate (Toprol Xl Tab*) 100 mg PO DAILY [facility] Last Admin: 04/01/18 08:01 Dose: Not Given Ondansetron HCl (Zofran 40 Mg Vial*) 4 mg IV Q6H PRN PRN Reason: NAUSEA Oxycodone HCl (Roxycodone Tab*) 5 mg PO Q8HR PRN PRN Reason: PAIN Pharmacy Consult (Vancomycin Per Pharmacy*) 1 note FOLLOW UP . PRN PRN Reason: PER PROTOCOL Pharmacy Profile Note (Vancomycin Trough Check) 1 note FOLLOW UP 1130 ONE Stop: 04/01/18 11:31 Objective: [] Vital Signs Temp Pulse Resp BP Pulse Ox 98.5 F 68 18 102/56 98 04/01/18 07:46 04/01/18 08:00 04/01/18 08:14 04/01/18 08:01 04/01/18 07:46 HEENT - no oral lesions skin - vitiligo Ext - RIGH foot. improved redness from pen leeroy, non tender, skin pealing. CTA RRR S1S2 +BS NT ND Assessment: []68 year old male on Nivolumab for metastatic melanoma and in CR, has been tolerating well. Follow up after MRSA cellulites and ARF. Improved on both counts with vancomycin Plan: []1. Will continue Vancomycin and plan out patient antibiotics pending ID evaluation. 2. MRI foot today r/o osteomyelitis. 3. ARF improved and was second to Bactrim, follow 4. Hold Nivolumab until has completed course of antibiotics. 5. Possible D/C today.
[2018-04-01] MEDS ORDERED: Vancomycin Trough Check NOTE FOLLOW UP ONE (11:30)
[2018-04-01] MEDS: Vancomycin(*) 750 MG in NS 0.9% 250 ML* 250 ML IVPB SCH (11:38)
[2018-04-01 11:46] VITALS: BP 121/56
[2018-04-01] MEDS ORDERED: Vancomycin(*) 750 MG in NS 0.9% 250 ML* 250 ML IVPB ONE (12:00)
[2018-04-01] MEDS ORDERED: Vancomycin(*) 750 MG in NS 0.9% 250 ML* 250 ML IVPB SCH (20:00)
--- NOTE | 2018-04-02 12:31 | DS ---
DISCHARGE SUMMARY: DATE OF ADMISSION: 03/30/18 DATE OF DISCHARGE: 04/01/18 ATTENDING PHYSICIAN: Dr. Chapin Luong * (dictated by Marisa Whitley NP). PRIMARY CARE PROVIDER: Dr. Dionicio Keenan. PRIMARY DIAGNOSIS: Cellulitis. SECONDARY DIAGNOSES: 1. Melanoma. 2. Diabetes. 3. Hyperlipidemia. 4. Hypertension. 5. Leaky valve. STUDIES COMPLETED WHILE IN THE HOSPITAL: The patient had a chest x-ray on 03/30. Radiologist's impression: Small left pleural effusion versus chronic pleural thickening. He had a right foot x-ray on 03/31/18. Radiologist's impression: 1. Osteoarthritis. 2. Peripheral artery disease. 3. No acute erosion or periosteal reaction. Plain film findings of osteomyelitis are relatively related findings. As there is persistent clinical concern for osteomyelitis, recommending correlating with followup imaging, 3-phase bone scan, white cell scan, and MRI of the affected region. DISCHARGE MEDICATIONS: 1. Doxycycline 100 mg p.o. b.i.d. x14 days. Continued home medications: 1. Oxycodone 1 tablet p.o. q.8 hours as needed. 2. Acarbose 1 tab t.i.d. with meals. 3. Metformin 1000 mg p.o. b.i.d. with meals. 4. Crestor 5 mg p.o. daily. 5. Fish oil 1 cap p.o. b.i.d. 6. Metoprolol 100 mg p.o. daily. 7. Lisinopril 20 mg p.o. daily. 8. Glimepiride 2 mg p.o. b.i.d. 9. Aspirin 81 mg p.o. daily. 10. Acetaminophen 650 mg p.o. q.4 hours as needed for pain. HISTORY OF PRESENT ILLNESS AND HOSPITAL COURSE: Mr. Fuller is a 68-year-old male with a past medical history significant for melanoma, diabetes, hypertension, hyperlipidemia, and "leaky valve," who states that approximately 8 days ago, he began having fever, generalized fatigue and right foot redness and swelling. He states that he was seen at [facility] and was prescribed Cipro and then followed up with his primary care provider on sunday, who did a wound culture of the right foot and started him on Bactrim. The patient states that he has been taking Bactrim 1 tablet BID continued not to feel well so he was instructed by his primary care to go the the emergency room where they increased his bactrim to 2 pills twice daily. He took this dose for 7 days which caused him to have GI upset and then was decreased to 1 pill twice daily. He reported to the Emergency room today at the direction of his recruitment officer recommendation do to fever up to 101.7 at home, and elevated potassium. The patient also complained of feeling similar to when he had walking pneumonia in the past. He denies any cough or shortness of breath. He reports fever, chills. Denies any chest pain, shortness of breath, nausea, or vomiting. On admission, he reports that he had diarrhea for a few days while taking increased dose of Bactrim. Denies any urinary symptoms such as urgency or frequency. Due to his elevated potassium, Dr. Worthington recommended he go to the emergency room for further evaluation. While in the emergency room, his potassium level was 5.7, which was down from 3 days prior it was 5.9. His creatinine was elevated as well. It was 1.9 on , on 03/29/18, it was 1.73, and today on admission, 03/30/18, his creatinine was 2.26. He received blood cultures and IV fluids. He had a chest x- ray with report as per above and due to his hyperkalemia and acute renal failure, the patient was admitted to the hospital. The patient also reports the infection is first started after having a pedicure while in [place], where they shaved a callus on the side of his right foot. While in the hospital, the patient was placed on vancomycin IV. On admission, he did have facial flushing and throughout his hospitalization did develop a rash to his torso. I suspect this rash is related to Bactrim and that he is now allergic to the BACTRIM, as his rash appears to be a drug rash. On date of discharge, the facial flushing is starting to subside. The rash is improving slightly. He denies any itching or pain with the rash. There are no open lesions with the rash. The rash is erythematous and flat. On the day of discharge, the patient reports that he is feeling much better. He has been afebrile for over 24 hours. At this time, Mr. Fuller is stable for discharge home. REVIEW OF SYSTEMS: The patient denies fever, chills. Denies any nausea, vomiting, or diarrhea. Denies any abdominal pain. Denies any chest pain or shortness of breath. A review of 14-systems was completed and all others remained negative. PHYSICAL EXAMINATION: General: Alert and oriented male, appears stated age. He does have mild facial flushing and continues to have flat rash noted to his torso and arms. HEENT: Head is atraumatic, normocephalic. EOMs are intact. Sclerae are anicteric. Trachea is midline. Neck: Supple. Respiratory: Lungs are clear to auscultation bilaterally. There are no wheezes, rales, or rhonchi. He has equal and even respiratory effort. Cardiac: S1, S2. Regular rate and rhythm. There are no murmurs, rubs, or gallops. Abdomen: Soft and nontender. Bowel sounds are positive x4. Extremities: Radial pulses +2 bilaterally, pedal pulses +2. mild redness to the right 5th toe and mild tenderness to the base of the 5th toe. There is no edema noted. He is able to move all 4 extremities with full range of motion. Skin: He does have a flat erythematous rash to his torso and arms. His face remains to have mild erythema. There are no lesions or open areas on this rash. Neurologic: He is alert and oriented x3. There are no focal neuro deficits. DISCHARGE PLAN: Mr. Fuller will be discharged back home today. ACTIVITY: As tolerated. 1. Cellulitis. He was seen in consultation by Infectious Disease during his hospitalization. He is recommended he be placed on doxycycline 100 mg p.o. b.i.d. x14 days. He is to follow up with Dr. King in his office in 2 weeks. The office will call with the followup appointment. The patient was instructed to call Dr. King if he is unable to tolerate the medication, develops increased redness to his foot, or increased drainage or pain to his right foot. The patient and verbalized understanding. The patient was also instructed to protect himself from the sun as doxycycline can increase his risk of getting sunburn. The patient again verbalized understanding. 2. Melanoma. He should follow up with Hematology/Oncology at the completion of his antibiotics, he should call the office for followup appointment. 3. Hypertension. He should continue his lisinopril and metoprolol as previously prescribed. 4. He has developed an allergy to BACTRIM and Bactrim should be listed as an allergy for this patient. 5. Diabetes. He should continue his glimepiride 2 mg orally twice daily and metformin 1000 mg twice daily. 6. Acute kidney injury. His BUN and creatinine returned to baseline during his hospitalization with fluid and hydration. His potassium level returned to within normal limits. His BUN was 14, and creatinine was 1.10. He should continue to have this monitored. I suspect the acute kidney injury was related to the double dose of Bactrim that he was taking as this can cause elevation in potassium as well as BUN and creatinine. 7. Hyperkalemia. He did get Kayexalate during this admission, his potassium decreased from 5.7 to 5.0, which is now within normal range. I suspect that his hyperkalemia is related to the double dose of Bactrim that he was taking as this is a side effect of Bactrim DS. 8. The patient was instructed to follow up with Dr. King in 2 weeks. He was also instructed to return to the emergency room for any chest pain or shortness of breath, any increased fevers or any changes in his condition. This is a summarization of his hospitalization. For further details, please see the entire medical record. TIME SPENT: Time spent on this discharge was approximately 60 minutes, greater than half that time was spent with the patient discussing discharge plans. CONDITION ON DISCHARGE: Stable. MARISA WHITLEY, LAURA [id number]/[facility] #: [id number] [place]
[2018-04-03] MEDS ORDERED: Vancomycin Trough Check NOTE FOLLOW UP ONE (11:30)
== END 2018-04-01 13:45 | disposition home or self-care (01) | DRG 603 ==
LOC: ED 19:04 → INTOOBSV 21:36 → MED 21:36 → OBSVTOIN 03-31 13:34
PROVIDERS: ADMIT Hospitalist; ATTEND Student in an Organized Health Care Education/Training Program
DX: L03.115 Cellulitis of right lower limb (principal); N17.9 Acute kidney failure, unspecified; E87.1 Hypo-osmolality and hyponatremia; C79.9 Secondary malignant neoplasm of unspecified site; I38 Endocarditis, valve unspecified; C43.9 Malignant melanoma of skin, unspecified; E11.51 Type 2 diabetes mellitus with diabetic peripheral angiopathy without gangrene; I10 Essential (primary) hypertension; E78.5 Hyperlipidemia, unspecified; E87.5 Hyperkalemia; L84 Corns and callosities; B95.62 Methicillin resistant Staphylococcus aureus infection as the cause of diseases classified elsewhere; E86.0 Dehydration; E11.40 Type 2 diabetes mellitus with diabetic neuropathy, unspecified; R21 Rash and other nonspecific skin eruption; R01.1 Cardiac murmur, unspecified; L27.1 Localized skin eruption due to drugs and medicaments taken internally; T37.0X5A Adverse effect of sulfonamides, initial encounter; M19.071 Primary osteoarthritis, right ankle and foot; Z87.01 Personal history of pneumonia (recurrent); Z85.820 Personal history of malignant melanoma of skin; Z83.3 Family history of diabetes mellitus; Z80.0 Family history of malignant neoplasm of digestive organs; Z82.49 Family history of ischemic heart disease and other diseases of the circulatory system; Z87.891 Personal history of nicotine dependence; Z72.89 Other problems related to lifestyle; Y92.9 Unspecified place or not applicable; Z88.2 Allergy status to sulfonamides; Z79.84 Long term (current) use of oral hypoglycemic drugs; Z79.82 Long term (current) use of aspirin
CPT/HCPCS: 36415; 71046; 80048; 80053; 80202; 81003; 82570; 82575; 83605; 84300; 85025; 85652; 86140; 87040; 87070; 87077; 87205; 87493; 87640; 87641; 93005; 99232; 99285; A9270-GY; J1642; J1644; J3370

== ENCOUNTER 2018-09-19 07:10 | Day surgery (SDC) | payer MEDICARE ==
[~2018-09-19 07:10] MED LIST: Buffered Lidocaine 0.9% SYRIN* 5 ML/SYR SYRINGE INTRADERM ONE; Famotidine IV* 10 MG/ML 2 ML (20 mg) IV ONE
[2018-09-19] MEDS ORDERED: ceFAZolin 2 GM PREMIX in ORs 2 GM/50 ML BAG IVPB ONE (07:25)
[2018-09-19] MEDS ORDERED: Famotidine IV* 10 MG/ML 2 ML (20 mg) ONE (07:25)
[2018-09-19] MEDS ORDERED: DiMENhydriNATE IV* 50 MG/ML VIAL IV PUSH PRN (09:15)
[2018-09-19] MEDS ORDERED: oxyCODONE TAB* 5 MG TAB PO PRN (09:15)
[2018-09-19] MEDS ORDERED: Naloxone* 0.4 MG/ML 1 ML VIAL IV PRN (09:15)
[2018-09-19] MEDS ORDERED: HYDROcodone/ACETAMIN 5-325 MG* 1 TAB PO PRN (09:15)
[2018-09-19] MEDS ORDERED: fentaNYL* 50 MCG/ML 2 ML VIAL (100 MCG VIAL) IV PRN (09:15)
[2018-09-19] MEDS ORDERED: Midazolam* 1 MG/ML 5 ML VIAL (5 MG) ONE (09:25)
[2018-09-19] MEDS ORDERED: fentaNYL* 50 MCG/ML 2 ML VIAL (100 MCG VIAL) ONE (09:25)
[2018-09-19] MEDS ORDERED: Bupivacaine 0.25% SDV* 30 ML ONE (09:32)
[2018-09-19] MEDS ORDERED: Lidocaine 2% PF * 5 ML VIAL ONE (09:36)
[2018-09-19] MEDS ORDERED: Propofol* 10 MG/ML 20 ML BTL IV PUSH ONE (09:36)
--- NOTE | 2018-09-19 10:48 | OP ---
Operative Report - Blank - Operative Report Date of Operation: 09/19/18 Note: PATIENT: Arcenio Fuller DATE OF : 1950 DATE OF SURGERY: 09/19/2018 SURGEON: Ash Conde MD SUPERVISOR [employer]: LUIS FERNANDO Freeman, whos assistance was necessary for positioning, retraction, help with instrumentation, and closure. ANESTHESIOLOGIST: Dr. James PREOPERATIVE DIAGNOSIS: Right lateral foot ulcer and 5th ray osteomyelitis POSTOPERATIVE DIAGNOSIS: Right lateral foot ulcer and 5th ray osteomyelitis OPERATION: Right foot excision of ulcer, 5th ray amputation and complex wound closure ANESTHESIA: MAC IMPLANTS: none TOURNIQUET TIME: Less than 30 minutes with an ankle Esmarch tourniquet. SPECIMENS: Toe to pathology. 5th metatarsal to microbiology. Culture swabs to microbiology. ESTIMATED BLOOD LOSS: minimal COMPLICATIONS: none STATUS: Stable from the operating room to the recovery room. INDICATIONS FOR PROCEDURE: Arcenio has had a persistent draining ulcer with underlying osteomyelitis refractory to extensive non-op treatment. Both operative and non operative treatment alternatives were reviewed. Further, the nature and risks of surgery were reviewed in careful detail. Our discussions regarding the risks of surgery included, but were not limited to, wound infection, wound problems, nerve injury , neuroma, RSD, persistent symptoms, blood clot, persistent or worsening infection, failure of the surgery, need for further amputation, and even the remote chance of catastrophic complication, including loss of limb. DESCRIPTION OF PROCEDURE: The patient was seen in the preoperative holding unit and informed written consent was obtained. The appropriate extremity was marked. The patient was then brought to the operating room and carefully positioned on the operating room table. Anesthesia was induced. All bony prominences were padded with great care. A chlorhexidine based pre-scrub was performed followed by a chloraprep prep and drape in standard sterile fashion. A surgical safety pause was then conducted in which we confirmed the appropriate patient, extremity, planned procedure, availability of equipment, indication and administration of antibiotics, and DVT prophylaxis in the form of a compression boot on the non- surgical extremity. I began with application of an ankle Esmarch tourniquet. Care was taken not to compress the infected area. I then made a lateral foot longitudinal incision, and ellipsed out the ulcer which measured 1.5cm x 1.5cm. The incision was carried distally in a circumferential manner around the fifth toe. I maintained as much healthy soft-tissue as was possible. The 5th toe was removed and sent to pathology. The fifth metatarsal was exposed. Culture swabs were obtained and sent to microbiology. I dissected around the fifth metatarsal to free soft tissue attachments. A small oscillating saw was then used to osteotomize the 5th metatarsal at its proximal aspect, leaving the base with the peroneus brevis insertion intact. The osteotomy was beveled so that there were no sharp edges. The 5th metatarsal was then excised and sent to microbiology. A Rongeur and rasp were then used to smooth the cut edges. Nonviable soft tissue was then sharply excised with a 15 blade scalpel. Once this debridement was taken back to healthy-appearing tissue, the wound was copiously irrigated with sterile saline. The tourniquet was released and all the remaining tissue was healthy and bleeding. Hemostasis was obtained. Due to excision of the chronic ulcer, there was a defect in the skin measuring 1cm x 1cm. The total length of the incision measured 13cm. Due to this defect , as well as undermining from the debridement, a complex wound closure with local soft tissue rotation was necessary. The wound was closed in layers utilizing 0 PDS for the deep fascial layer, 3-0 monocryl for the deep dermal layer and 3-0 nylon for the skin. This allowed for closure of the incision and defect, without tension on the skin. A sterile dressing was then applied, followed by a splint with the ankle in a neutral position. The patient was then awakened from anesthesia and transferred to the recovery room in stable condition. There were no complications. All needle and sponge counts were correct at the end of the case. ATTESTATION: I attest I was present and scrubbed and performed the critical portions of the procedure myself. POSTOPERATIVE PLAN: Follow up will be in two weeks for a wound check, but we may leave the sutures in for longer. Antibiotic treatment will be guided by the infectious disease service.
[2018-09-19 12:11] VITALS: BP 145/72
== END 2018-09-19 12:56 | disposition home or self-care (01) ==
LOC: OR 07:10
PROVIDERS: ATTEND Orthopaedic Surgery
DX: M86.671 Other chronic osteomyelitis, right ankle and foot (principal); L97.516 Non-pressure chronic ulcer of other part of right foot with bone involvement without evidence of necrosis; E11.51 Type 2 diabetes mellitus with diabetic peripheral angiopathy without gangrene; Z79.84 Long term (current) use of oral hypoglycemic drugs; Z87.891 Personal history of nicotine dependence; I10 Essential (primary) hypertension; E78.5 Hyperlipidemia, unspecified; Z79.01 Long term (current) use of anticoagulants; I73.9 Peripheral vascular disease, unspecified; Z85.820 Personal history of malignant melanoma of skin
CPT/HCPCS: 87070; 87073; 87076; 87077; 87186; 87205; J0690; J2250; J2704; J3010

== ENCOUNTER 2019-12-04 07:32 | Day surgery (SDC) | payer MEDICARE ==
[~2019-12-04 07:32] MED LIST changes: +Acetaminophen TAB* 325 MG PO ONE; -Buffered Lidocaine 0.9% SYRIN* 5 ML/SYR SYRINGE INTRADERM ONE; +Buffered Lidocaine 1% SYRIN* 1 ML/SYRINGE INTRADERM ONE; -Famotidine IV* 10 MG/ML 2 ML (20 mg) IV ONE; +Lactated Ringers 1000 ML Bag* 1,000 ML IV SCH
[2019-12-04] MEDS ORDERED: Midazolam* 1 MG/ML 2 ML VIAL (2 MG) ONE (07:56)
[2019-12-04] MEDS ORDERED: Acetaminophen TAB* 325 MG ONE (07:58)
[2019-12-04] MEDS ORDERED: Buffered Lidocaine 1% SYRIN* 1 ML/SYRINGE INTRADERM ONE (07:59)
[2019-12-04] MEDS ORDERED: ceFAZolin 2 GM PREMIX in ORs 2 GM/50 ML BAG ONE (07:59)
[2019-12-04] MEDS ORDERED: HYDROmorphone INJ1* 1 MG/ML SYRINGE IV PRN (08:32)
[2019-12-04] MEDS ORDERED: Naloxone* 0.4 MG/ML 1 ML VIAL IV PRN (08:32)
[2019-12-04] MEDS ORDERED: Ondansetron INJ* 2 MG/ML VIAL IV PRN (08:32)
[2019-12-04] MEDS ORDERED: Bupivacaine 0.25% SDV* 30 ML ONE (08:50)
--- NOTE | 2019-12-04 09:46 | OP ---
Operative Report - Blank - Operative Report Date of Operation: 12/04/19 Note: PATIENT: Arcenio Fuller DATE OF : 1950 DATE OF SURGERY: 12/04/2019 SURGEON: Ash Conde MD FOUNTAIN SERVER: LUIS FERNANDO Freeman, whos assistance was necessary for positioning, retraction, help with instrumentation, and closure. ANESTHESIOLOGIST: Dr. Landeros PREOPERATIVE DIAGNOSIS: Right 2nd toe diabetic ulcer with underlying toe osteomyelitis POSTOPERATIVE DIAGNOSIS: Right 2nd toe diabetic ulcer with underlying toe osteomyelitis OPERATION: Right 2nd toe amputation at the level of the PIP joint ANESTHESIA: MAC IMPLANTS: none TOURNIQUET TIME: Less than 30 minutes with an ankle Esmarch tourniquet. SPECIMENS: Toe to pathology. Culture swabs to microbiology lab. ESTIMATED BLOOD LOSS: minimal COMPLICATIONS: none STATUS: Stable from the operating room to the recovery room. INDICATIONS FOR PROCEDURE: Arcenio has developed a 2nd toe ulcer in the setting of diabetic neuropathy and has underlying osteomyelitis. Both operative and non operative treatment alternatives were reviewed. Further, the nature and risks of surgery were reviewed in careful detail. Our discussions regarding the risks of surgery included, but were not limited to, wound infection, wound problems, nerve injury , neuroma, RSD, persistent symptoms, blood clot, persistent or worsening infection, failure of the surgery, need for further amputation, and even the remote chance of catastrophic complication, including loss of limb. DESCRIPTION OF PROCEDURE: The patient was seen in the preoperative holding unit and informed written consent was obtained. The appropriate extremity was marked. The patient was then brought to the operating room and carefully positioned on the operating room table. Anesthesia was induced. All bony prominences were padded with great care. A chlorhexidine based pre-scrub was performed followed by a chloraprep prep and drape in standard sterile fashion. A surgical safety pause was then conducted in which we confirmed the appropriate patient, extremity, planned procedure, availability of equipment, indication and administration of antibiotics, and DVT prophylaxis in the form of a compression boot on the non- surgical extremity. I began with application of an ankle Esmarch tourniquet. Care was taken not to compress the infected toe. I then made an incision to remove the distal aspect of the toe. I maintained as much healthy soft-tissue length as was possible. The phalanges were dissected out and the toe was amputated at the level of the PIP joint. Culture swabs were obtained. The toe was then sent to pathology. The remaining soft tissues were healthy appearing. There was no purulence expressed from more proximal. We then irrigated copiously after removing the ankle Esmarch tourniquet. The skin edges were pink. We closed with 3-0 monocryl and then 3-0 nylon and then placed a sterile dressing. The patient was then awakened from anesthesia and transferred to the recovery room in stable condition. There were no complications. All needle and sponge counts were correct at the end of the case. ATTESTATION: I attest I was present and scrubbed and performed the critical portions of the procedure myself. POSTOPERATIVE PLAN: The patient may be heel weight-bearing in a post-operative shoe and will follow up will be in 1-2 weeks for a wound check, but we will likely leave the sutures in for 3 weeks. Antibiotic treatment will be guided by the infectious disease service.
[2019-12-04 10:20] VITALS: BP 147/68
== END 2019-12-04 10:40 | disposition home or self-care (01) ==
LOC: OR 07:32
PROVIDERS: ATTEND Orthopaedic Surgery
DX: M86.8X7 Other osteomyelitis, ankle and foot (principal); E11.621 Type 2 diabetes mellitus with foot ulcer; L97.519 Non-pressure chronic ulcer of other part of right foot with unspecified severity; E11.51 Type 2 diabetes mellitus with diabetic peripheral angiopathy without gangrene; Z79.84 Long term (current) use of oral hypoglycemic drugs; Z85.820 Personal history of malignant melanoma of skin; Z87.891 Personal history of nicotine dependence; I10 Essential (primary) hypertension; E78.00 Pure hypercholesterolemia, unspecified; I35.0 Nonrheumatic aortic (valve) stenosis; I27.20 Pulmonary hypertension, unspecified
CPT/HCPCS: 87070; 87073; 87205; 88305; 88311; A9270-GY; J0690; J2250; J3490

== ENCOUNTER 2020-10-19 08:02 | Inpatient (IN) ==
[2020-10-19] MEDS ORDERED: Ondansetron 4 mg VIAL 2 MG/ML 2 ml VIAL IV ONE (08:56)
[2020-10-19] MEDS ORDERED: fentaNYL 100 mcg/2 ml 50 MCG/ML VIAL IV SLOW PU ONE (08:57)
[2020-10-19] MEDS ORDERED: NS 0.9% 1000 ml BAG 1,000 ML IV SCH (09:45)
[2020-10-19] MEDS ORDERED: Morphine 2 MG/ML SYRINGE IV PRN (09:51)
[2020-10-19 10:00] LABS: ABS Eosinophils 0.1 10^3/ul (0-0.6); ABS Lymphocytes 2.6 10^3/ul (1.0-4.8); ABS Monocytes 0.6 10^3/ul (0-0.8); ABS Neutrophils 5.8 10^3/ul (1.5-7.7); Eosinophil % 1.1 %; Hematocrit 38 % (42-52); Hemoglobin 13.1 g/dL (14.0-18.0); Lymphocyte % 28.3 %; Mean Corpuscular HGB Conc 34 g/dL (31-36); Mean Corpuscular Hemoglobin 30 pg (27-31); Mean Corpuscular Volume 88 fL (80-94); Mean Platelet Volume 7.8 fL (7.4-10.4); Nucleated Red Blood Cells % 0.1; Platelet Count 128 10^3/uL (150-450); Red Blood Count 4.37 10^6 /uL (4.18-5.48); Red Cell Distribution Width 16 % (10-15); White Blood Count 9.1 10^3/uL (3.5-10.8)
[2020-10-19 10:13] LABS: Albumin 3.8 g/dL (3.2-5.2); Albumin/Globulin Ratio 1.3 (1-3); BUN/Creatinine Ratio 29.9 (8-20); C Reactive Protein 1.3 mg/L (<8.01); Calcium 9.4 mg/dL (8.6-10.3); EGFR African American 120.5 (>60); EGFR Non-African American 99.6 (>60); Magnesium 1.5 mg/dL (1.9-2.7); Potassium 4.2 mmol/L (3.5-5.0); Total Bilirubin 0.7 mg/dL (0.2-1.0); Total Protein 6.8 g/dL (6.4-8.9)
[2020-10-19 12:22] LABS: Erythrocyte Sed Rate 68 mm/Hr (0-19)
[2020-10-19] MEDS: Ondansetron 4 mg VIAL 2 MG/ML 2 ml VIAL IV PRN (12:26)
[2020-10-19] MEDS ORDERED: Gadoteridol (CONTRAST) 279.3 MG/ML 10 ML IV ONE (13:37)
[2020-10-19] MEDS: Dexamethasone IV 4 MG/ML VIAL 1 ml VIAL IV SLOW PU SCH ×2 (15:14→22:17)
[2020-10-20 05:58] LABS: ABS Lymphocytes 1.5 10^3/ul (1.0-4.8); ABS Monocytes 0.1 10^3/ul (0-0.8); ABS Neutrophils 7.8 10^3/ul (1.5-7.7); Eosinophil % 0.1 %; Hematocrit 41 % (42-52); Lymphocyte % 16.1 %; Mean Corpuscular HGB Conc 34 g/dL (31-36); Mean Corpuscular Hemoglobin 30 pg (27-31); Mean Corpuscular Volume 88 fL (80-94); Nucleated Red Blood Cells % 0.1; Platelet Count 167 10^3/uL (150-450); Red Blood Count 4.68 10^6 /uL (4.18-5.48); Red Cell Distribution Width 16 % (10-15); White Blood Count 9.5 10^3/uL (3.5-10.8)
[2020-10-20] MEDS ORDERED: Calcium Carb (TUMS) 500 mg CHEW TAB ONE (06:08)
[2020-10-20] MEDS: Calcium Carb (TUMS) 500 mg CHEW TAB PO PRN (06:09)
[2020-10-20] MEDS: Dexamethasone IV 4 MG/ML VIAL 1 ml VIAL IV SLOW PU SCH ×3 (06:11→23:06)
[2020-10-20 06:21] LABS: Albumin 3.9 g/dL (3.2-5.2); Albumin/Globulin Ratio 1.3 (1-3); BUN/Creatinine Ratio 27.1 (8-20); Calcium 9.3 mg/dL (8.6-10.3); EGFR African American 107.5 (>60); EGFR Non-African American 88.9 (>60); Globulin 3.1 g/dL (2-4); Potassium 4.9 mmol/L (3.5-5.0); Total Bilirubin 0.6 mg/dL (0.2-1.0)
[2020-10-20] MEDS: Ondansetron 4 mg VIAL 2 MG/ML 2 ml VIAL IV PRN (15:44)
[2020-10-21] MEDS: Dexamethasone IV 4 MG/ML VIAL 1 ml VIAL IV SLOW PU SCH ×3 (08:52→23:08)
[2020-10-21] MEDS: Calcium Carb (TUMS) 500 mg CHEW TAB PO PRN (23:15)
[2020-10-22] MEDS: Calcium Carb (TUMS) 500 mg CHEW TAB PO PRN (05:57)
[2020-10-22] MEDS: Dexamethasone IV 4 MG/ML VIAL 1 ml VIAL IV SLOW PU SCH ×3 (05:57→22:07)
[2020-10-22 06:37] LABS: ABS Lymphocytes 1.6 10^3/ul (1.0-4.8); ABS Monocytes 0.4 10^3/ul (0-0.8); ABS Neutrophils 9.3 10^3/ul (1.5-7.7); Hematocrit 41 % (42-52); Hemoglobin 14.1 g/dL (14.0-18.0); Lymphocyte % 14.4 %; Mean Corpuscular HGB Conc 34 g/dL (31-36); Mean Corpuscular Hemoglobin 30 pg (27-31); Mean Corpuscular Volume 89 fL (80-94); Mean Platelet Volume 7.2 fL (7.4-10.4); Nucleated Red Blood Cells % 0.1; Platelet Count 222 10^3/uL (150-450); Red Blood Count 4.67 10^6 /uL (4.18-5.48); Red Cell Distribution Width 16 % (10-15); White Blood Count 11.3 10^3/uL (3.5-10.8)
[2020-10-22 07:09] LABS: Albumin 3.9 g/dL (3.2-5.2); Albumin/Globulin Ratio 1.3 (1-3); BUN/Creatinine Ratio 35.4 (8-20); Calcium 10.2 mg/dL (8.6-10.3); EGFR African American 90.2 (>60); EGFR Non-African American 74.5 (>60); Potassium 4.8 mmol/L (3.5-5.0); Total Bilirubin 0.6 mg/dL (0.2-1.0); Total Protein 6.9 g/dL (6.4-8.9)
[2020-10-22] MEDS ORDERED: NS 0.9% 1000 ml BAG 1,000 ML IV ONE ×2 (11:21→22:32)
[2020-10-22] MEDS ORDERED: Dextrose 50% Syringe 50 ml 25 GM/50 ML SYRINGE IV PUSH PRN (11:39)
[2020-10-22] MEDS ORDERED: Insulin GLARGINE 100 un/ml 10 ml VIAL SUBCUT SCH (12:00)
[2020-10-22] MEDS: Nystatin SUSPENSION 100,000 UNITS/ML UDC PO SCH ×3 (12:50→22:07)
[2020-10-22 18:05] LABS: BUN/Creatinine Ratio 39.3 (8-20); EGFR Non-African American 84.3 (>60)
[2020-10-22] MEDS: Ondansetron 4 mg VIAL 2 MG/ML 2 ml VIAL IV PRN (18:11)
[2020-10-22 18:14] LABS: Potassium 4.6 mmol/L (3.5-5.0)
[2020-10-22] MEDS ORDERED: Insulin GLARGINE 100 un/ml 10 ml VIAL SUBCUT ONE (21:00)
[2020-10-22] MEDS ORDERED: Sodium Bicarbonate 8.4% SYR 50 ml SYRINGE IV ONE (22:33)
[2020-10-22] MEDS: NS 0.9% 1000 ml BAG 1,000 ML IV SCH (22:58)
[2020-10-23 02:58] LABS: Calcium 7.1 mg/dL (8.6-10.3); Potassium 3.5 mmol/L (3.5-5.0)
[2020-10-23 03:04] LABS: BUN/Creatinine Ratio 41.5 (8-20); EGFR African American 185.4 (>60); EGFR Non-African American 153.3 (>60)
[2020-10-23 04:07] LABS: ABS Lymphocytes 1.2 10^3/ul (1.0-4.8); ABS Monocytes 0.3 10^3/ul (0-0.8); ABS Neutrophils 5.8 10^3/ul (1.5-7.7); Hematocrit 36 % (42-52); Hemoglobin 12.5 g/dL (14.0-18.0); Mean Corpuscular HGB Conc 34 g/dL (31-36); Mean Corpuscular Hemoglobin 30 pg (27-31); Mean Corpuscular Volume 88 fL (80-94); Mean Platelet Volume 7.4 fL (7.4-10.4); Platelet Count 155 10^3/uL (150-450); Red Blood Count 4.14 10^6 /uL (4.18-5.48); Red Cell Distribution Width 16 % (10-15); White Blood Count 7.3 10^3/uL (3.5-10.8)
[2020-10-23 04:08] LABS: Nucleated Red Blood Cells % 0.1
[2020-10-23 04:27] LABS: Albumin 3.2 g/dL (3.2-5.2); Albumin/Globulin Ratio 1.5 (1-3); BUN/Creatinine Ratio 39.4 (8-20); Calcium 8.6 mg/dL (8.6-10.3); Globulin 2.2 g/dL (2-4); Potassium 4.1 mmol/L (3.5-5.0); Total Bilirubin 0.5 mg/dL (0.2-1.0); Total Protein 5.4 g/dL (6.4-8.9)
[2020-10-23] MEDS: Dexamethasone IV 4 MG/ML VIAL 1 ml VIAL IV SLOW PU SCH ×3 (08:00→23:21)
[2020-10-23] MEDS: Nystatin SUSPENSION 100,000 UNITS/ML UDC PO SCH ×4 (08:01→20:44)
[2020-10-23] MEDS: NS 0.9% 1000 ml BAG 1,000 ML IV SCH (09:07)
[2020-10-23] MEDS ORDERED: Sodium Bicarb 8.4% Vial 50 ML 150 MEQ in D5W 1000 ml BAG 850 ML IV SCH (13:00)
[2020-10-23 18:20] LABS: BUN/Creatinine Ratio 35.1 (8-20); Calcium 8.1 mg/dL (8.6-10.3); EGFR African American 126.2 (>60); EGFR Non-African American 104.3 (>60)
[2020-10-23 18:54] LABS: Potassium 4.4 mmol/L (3.5-5.0)
[2020-10-23 20:27] LABS: Calcium 9.6 mg/dL (8.6-10.3); Potassium 4.8 mmol/L (3.5-5.0)
[2020-10-23 20:32] LABS: BUN/Creatinine Ratio 32.2 (8-20); EGFR African American 100.7 (>60); EGFR Non-African American 83.2 (>60)
[2020-10-23] MEDS: Insulin GLARGINE 100 un/ml 10 ml VIAL SUBCUT SCH (20:44)
[2020-10-23] MEDS ORDERED: Insulin GLARGINE 100 un/ml 10 ml VIAL SUBCUT SCH (21:00)
[2020-10-23] MEDS ORDERED: Insulin Infusion 100unit/100mL 100 UNIT/100 ML BAG IV SCH (21:00)
[2020-10-23] MEDS ORDERED: NS 0.45% KCl 20 Meq 1000 ml 1,000 ML IV SCH (21:00)
[2020-10-23 23:19] LABS: BUN/Creatinine Ratio 34.2 (8-20); Calcium 9.8 mg/dL (8.6-10.3); EGFR African American 128.2 (>60); EGFR Non-African American 105.9 (>60); Potassium 4.2 mmol/L (3.5-5.0)
[2020-10-23] MEDS ORDERED: D5W 1/2 NS KCl 20 meq 1000 ml 1,000 ML IV SCH (23:45)
[2020-10-24] MEDS ORDERED: Insulin Infusion 100unit/100mL 100 UNIT/100 ML BAG IV SCH ×3 (00:15→05:15)
[2020-10-24 02:44] LABS: BUN/Creatinine Ratio 33.3 (8-20); Calcium 9.3 mg/dL (8.6-10.3); EGFR African American 136.8 (>60); Potassium 4.4 mmol/L (3.5-5.0)
[2020-10-24] MEDS ORDERED: D5W 1/2 NS KCl 20 meq 1000 ml 1,000 ML IV SCH (04:15)
[2020-10-24] MEDS ORDERED: Insulin GLARGINE 100 un/ml 10 ml VIAL SUBCUT ONE (08:17)
[2020-10-24] MEDS: Dexamethasone IV 4 MG/ML VIAL 1 ml VIAL IV SLOW PU SCH ×3 (08:27→23:55)
[2020-10-24] MEDS ORDERED: D5LR 1000 ml BAG 1,000 ML IV SCH (09:00)
[2020-10-24] MEDS: Nystatin SUSPENSION 100,000 UNITS/ML UDC PO SCH ×4 (09:26→20:42)
[2020-10-24 09:38] LABS: ABS Lymphocytes 1.5 10^3/ul (1.0-4.8); ABS Monocytes 0.5 10^3/ul (0-0.8); ABS Neutrophils 6.5 10^3/ul (1.5-7.7); Hematocrit 39 % (42-52); Hemoglobin 13.6 g/dL (14.0-18.0); Lymphocyte % 17.6 %; Mean Corpuscular HGB Conc 35 g/dL (31-36); Mean Corpuscular Hemoglobin 30 pg (27-31); Mean Corpuscular Volume 87 fL (80-94); Mean Platelet Volume 7.4 fL (7.4-10.4); Nucleated Red Blood Cells % 0.1; Platelet Count 147 10^3/uL (150-450); Red Blood Count 4.54 10^6 /uL (4.18-5.48); Red Cell Distribution Width 16 % (10-15); White Blood Count 8.5 10^3/uL (3.5-10.8)
[2020-10-24 09:50] LABS: Activated Partial Thrombo Time 22.9 seconds (26.0-38.0); INR 0.97 (0.82-1.09)
[2020-10-24 09:53] LABS: Albumin 3.6 g/dL (3.2-5.2); Albumin/Globulin Ratio 1.4 (1-3); BUN/Creatinine Ratio 29.9 (8-20); Calcium 9.4 mg/dL (8.6-10.3); EGFR African American 141.5 (>60); EGFR Non-African American 116.9 (>60); Globulin 2.6 g/dL (2-4); Potassium 4.6 mmol/L (3.5-5.0); Total Bilirubin 0.8 mg/dL (0.2-1.0); Total Protein 6.2 g/dL (6.4-8.9)
[2020-10-24] MEDS ORDERED: Senna TAB 8.6 mg TAB ONE (10:45)
[2020-10-24] MEDS ORDERED: Polyethylene Glycol 3350 17 GM PACKET ONE (10:46)
[2020-10-24] MEDS: Senna TAB 8.6 mg TAB PO SCH ×2 (10:49→20:43)
[2020-10-24] MEDS: Polyethylene Glycol 3350 17 GM PACKET PO SCH (10:49)
[2020-10-24] MEDS: Insulin GLARGINE 100 un/ml 10 ml VIAL SUBCUT SCH (20:15)
[2020-10-25] MEDS: Lactated Ringers 1000 ml BAG 1,000 ML IV SCH ×2 (05:56→15:52)
[2020-10-25] MEDS ORDERED: Buffered Lidocaine 1% SYRIN 1 ml INTRADERM ONE (06:00)
[2020-10-25 06:20] LABS: ABS Lymphocytes 1.2 10^3/ul (1.0-4.8); ABS Monocytes 0.3 10^3/ul (0-0.8); ABS Neutrophils 6.4 10^3/ul (1.5-7.7); Hematocrit 39 % (42-52); Hemoglobin 13.6 g/dL (14.0-18.0); Lymphocyte % 14.9 %; Mean Corpuscular HGB Conc 35 g/dL (31-36); Mean Corpuscular Hemoglobin 30 pg (27-31); Mean Corpuscular Volume 87 fL (80-94); Mean Platelet Volume 7.5 fL (7.4-10.4); Platelet Count 125 10^3/uL (150-450); Red Cell Distribution Width 16 % (10-15); White Blood Count 7.9 10^3/uL (3.5-10.8)
[2020-10-25 06:45] LABS: BUN/Creatinine Ratio 37.1 (8-20); Calcium 9.2 mg/dL (8.6-10.3); EGFR African American 154.7 (>60); EGFR Non-African American 127.9 (>60); Magnesium 1.9 mg/dL (1.9-2.7); Potassium 4.4 mmol/L (3.5-5.0)
[2020-10-25] MEDS: Dexamethasone IV 4 MG/ML VIAL 1 ml VIAL IV SLOW PU SCH ×2 (07:44→16:19)
[2020-10-25] MEDS: Polyethylene Glycol 3350 17 GM PACKET PO SCH (10:41)
[2020-10-25] MEDS: Senna TAB 8.6 mg TAB PO SCH ×2 (10:41→19:31)
[2020-10-25] MEDS: Nystatin SUSPENSION 100,000 UNITS/ML UDC PO SCH ×4 (10:41→19:31)
[2020-10-25] MEDS ORDERED: Thrombin 5,000 UNITS 1 APPLIC KIT - topical use - TOPICAL ONE (11:05)
[2020-10-25] MEDS ORDERED: Lidocaine 1% w EPI 1:100,000 MDV 20 ML VIAL ONE (11:05)
[2020-10-25] MEDS ORDERED: fentaNYL 100 mcg/2 ml 50 MCG/ML VIAL ONE (11:05)
[2020-10-25] MEDS ORDERED: Rocuronium 50 mg VIAL 10 mg/ml 5 ml VIAL (50 mg) ONE ×2 (11:05→12:55)
[2020-10-25] MEDS ORDERED: Bacitracin INJECTION 50,000 UNITS ONE (11:05)
[2020-10-25] MEDS ORDERED: Midazolam 2 mg/2 ml VIAL 1 mg/ml 2 ml VIAL (2 mg) ONE (11:06)
[2020-10-25] MEDS ORDERED: Gelfoam Sponge SIZE 100 SPONGE ONE (11:09)
[2020-10-25] MEDS ORDERED: Propofol 10 MG/ML 20 ML BTL ONE (11:10)
[2020-10-25] MEDS ORDERED: Ondansetron 4 mg VIAL 2 MG/ML 2 ml VIAL ONE (11:10)
[2020-10-25] MEDS ORDERED: ceFAZolin 2 GM PREMIX 2 GM/50 ML BAG IVPB ONE (12:00)
[2020-10-25] MEDS ORDERED: Glycopyrrolate IV 0.2 MG/ML 1 ML VIAL ONE (12:43)
[2020-10-25] MEDS ORDERED: fentaNYL 250 mcg/5 ml 50 MCG/ML 5 ml VIAL (250 MCG) ONE (13:12)
[2020-10-25] MEDS ORDERED: EPHEDrine (Pressors) 50 MG/ML VIAL ONE (13:39)
[2020-10-25] MEDS ORDERED: Dexamethasone IV 4 MG/ML VIAL 1 ml VIAL ONE (14:15)
[2020-10-25] MEDS: niCARdipine 0.1MG/ML IVPREMIX 20 MG/200 ML BAG IV SCH ×3 (15:05→23:12)
[2020-10-25] MEDS ORDERED: LACTATED RINGERS 1000 ML BAG IV SCH (18:00)
[2020-10-25] MEDS: Insulin GLARGINE 100 un/ml 10 ml VIAL SUBCUT SCH (19:24)
[2020-10-25] MEDS ORDERED: Morphine 2 MG/ML SYRINGE IV ONE (22:24)
[2020-10-26] MEDS: Dexamethasone IV 4 MG/ML VIAL 1 ml VIAL IV SLOW PU SCH ×3 (00:45→14:57)
[2020-10-26] MEDS: niCARdipine 0.1MG/ML IVPREMIX 20 MG/200 ML BAG IV SCH ×2 (02:01→04:51)
[2020-10-26 08:08] LABS: ABS Lymphocytes 0.8 10^3/ul (1.0-4.8); ABS Monocytes 0.3 10^3/ul (0-0.8); ABS Neutrophils 8.6 10^3/ul (1.5-7.7); Hematocrit 38 % (42-52); Hemoglobin 13.3 g/dL (14.0-18.0); Lymphocyte % 8.1 %; Mean Corpuscular HGB Conc 35 g/dL (31-36); Mean Corpuscular Hemoglobin 30 pg (27-31); Mean Corpuscular Volume 88 fL (80-94); Mean Platelet Volume 7.6 fL (7.4-10.4); Nucleated Red Blood Cells % 0.1; Platelet Count 126 10^3/uL (150-450); Red Blood Count 4.37 10^6 /uL (4.18-5.48); Red Cell Distribution Width 16 % (10-15); White Blood Count 9.8 10^3/uL (3.5-10.8)
[2020-10-26 08:23] LABS: BUN/Creatinine Ratio 36.6 (8-20); Calcium 8.7 mg/dL (8.6-10.3); EGFR African American 132.3 (>60); EGFR Non-African American 109.4 (>60); Magnesium 1.9 mg/dL (1.9-2.7); Potassium 4.3 mmol/L (3.5-5.0)
[2020-10-26] MEDS: Polyethylene Glycol 3350 17 GM PACKET PO SCH (08:34)
[2020-10-26] MEDS: Senna TAB 8.6 mg TAB PO SCH ×2 (08:34→21:15)
[2020-10-26] MEDS: Nystatin SUSPENSION 100,000 UNITS/ML UDC PO SCH ×4 (08:34→21:15)
[2020-10-26] MEDS: Morphine 2 MG/ML SYRINGE IV PRN (16:16)
[2020-10-26] MEDS: Insulin GLARGINE 100 un/ml 10 ml VIAL SUBCUT SCH (21:16)
[2020-10-27] MEDS: Dexamethasone IV 4 MG/ML VIAL 1 ml VIAL IV SLOW PU SCH ×3 (00:20→16:39)
[2020-10-27] MEDS: Morphine 2 MG/ML SYRINGE IV PRN (02:51)
[2020-10-27] MEDS ORDERED: Dexamethasone IV 4 MG/ML VIAL 1 ml VIAL ONE (08:56)
[2020-10-27] MEDS: Polyethylene Glycol 3350 17 GM PACKET PO SCH (09:05)
[2020-10-27] MEDS: Senna TAB 8.6 mg TAB PO SCH ×2 (09:08→21:47)
[2020-10-27] MEDS: Nystatin SUSPENSION 100,000 UNITS/ML UDC PO SCH ×4 (09:08→21:47)
[2020-10-27] MEDS ORDERED: HYDROcodone/ACETAMIN 5/325 mg TAB PO PRN (09:24)
[2020-10-27] MEDS: HYDROcodone/ACETAMIN 5/325 mg TAB PO PRN (09:57)
[2020-10-27] MEDS ORDERED: hydrALAZINE 20 mg/ml 1 ML Vial IV IV SLOW PU PRN (13:23)
[2020-10-27] MEDS ORDERED: Insulin GLARGINE 100 un/ml 10 ml VIAL SUBCUT SCH (21:19)
[2020-10-27] MEDS: Insulin GLARGINE 100 un/ml 10 ml VIAL SUBCUT SCH (21:45)
[2020-10-28] MEDS: Dexamethasone IV 4 MG/ML VIAL 1 ml VIAL IV SLOW PU SCH (00:10)
[2020-10-28] MEDS: HYDROcodone/ACETAMIN 5/325 mg TAB PO PRN (04:37)
[2020-10-28] MEDS: Polyethylene Glycol 3350 17 GM PACKET PO SCH (08:08)
[2020-10-28] MEDS: Nystatin SUSPENSION 100,000 UNITS/ML UDC PO SCH ×4 (08:09→21:40)
[2020-10-28] MEDS: Senna TAB 8.6 mg TAB PO SCH ×2 (08:09→21:40)
[2020-10-28] MEDS ORDERED: Sodium Phosphate ADULT ENEMA 133 ML BTL PR ONE (14:30)
[2020-10-28] MEDS: Magnesium Hydroxide LIQ 30 ML UDC PO PRN ×2 (14:39→21:40)
[2020-10-28] MEDS ORDERED: Magnesium CITRATE LIQ 300 ML BTL PO ONE ×2 (14:50→18:00)
[2020-10-28] MEDS: Insulin GLARGINE 100 un/ml 10 ml VIAL SUBCUT SCH (21:41)
[2020-10-28] MEDS: Calcium Carb (TUMS) 500 mg CHEW TAB PO PRN (22:59)
[2020-10-29 06:02] LABS: ABS Lymphocytes 0.9 10^3/ul (1.0-4.8); ABS Monocytes 0.4 10^3/ul (0-0.8); ABS Neutrophils 7.1 10^3/ul (1.5-7.7); Eosinophil % 0.1 %; Hematocrit 40 % (42-52); Lymphocyte % 10.6 %; Mean Corpuscular HGB Conc 35 g/dL (31-36); Mean Corpuscular Hemoglobin 30 pg (27-31); Mean Corpuscular Volume 88 fL (80-94); Mean Platelet Volume 7.2 fL (7.4-10.4); Platelet Count 126 10^3/uL (150-450); Red Blood Count 4.59 10^6 /uL (4.18-5.48); Red Cell Distribution Width 16 % (10-15); White Blood Count 8.4 10^3/uL (3.5-10.8)
[2020-10-29 06:20] LABS: BUN/Creatinine Ratio 35.5 (8-20); Calcium 9.1 mg/dL (8.6-10.3); EGFR African American 154.7 (>60); EGFR Non-African American 127.9 (>60); Potassium 4.8 mmol/L (3.5-5.0)
[2020-10-29] MEDS: Insulin GLARGINE 100 un/ml 10 ml VIAL SUBCUT SCH (07:16)
[2020-10-29 07:43] VITALS: BP 133/74
[2020-10-29] MEDS: Senna TAB 8.6 mg TAB PO SCH (09:07)
[2020-10-29] MEDS: Polyethylene Glycol 3350 17 GM PACKET PO SCH (09:11)
== END 2020-10-29 11:10 | disposition home health service (06) | DRG 31 ==
LOC: ED 08:02 → MEDTELE 09:36 → ICU 10-22 12:52 → SSU 10-26 12:30
PROVIDERS: ADMIT Internal Medicine Hematology & Oncology; ATTEND Internal Medicine Hematology & Oncology

== ENCOUNTER 2020-11-09 15:44 | Inpatient (IN) ==
[2020-11-09 20:29] LABS: Hematocrit 41 % (42-52); Hemoglobin 14.2 g/dL (14.0-18.0); Mean Corpuscular HGB Conc 35 g/dL (31-36); Mean Corpuscular Hemoglobin 30 pg (27-31); Mean Corpuscular Volume 87 fL (80-94); Mean Platelet Volume 6.7 fL (7.4-10.4); Platelet Count 107 10^3/uL (150-450); Red Blood Count 4.66 10^6 /uL (4.18-5.48); Red Cell Distribution Width 16 % (10-15)
[2020-11-09 20:34] LABS: ABS Lymphocytes 1.5 10^3/ul (1.0-4.8); ABS Monocytes 0.4 10^3/ul (0-0.8); Eosinophil % 0.1 %; Lymphocyte % 14.7 %
[2020-11-09 20:50] LABS: ALT 109 U/L (7-52); AST 37 U/L (13-39); Albumin 3.5 g/dL (3.2-5.2); Albumin/Globulin Ratio 1.4 (1-3); Alkaline Phosphatase 49 U/L (34-104); Anion Gap 8 mmol/L (2-11); BUN/Creatinine Ratio 38.6 (8-20); Blood Urea Nitrogen 27 mg/dL (6-24); CO2 Carbon Dioxide 27 mmol/L (22-32); Calcium 9.4 mg/dL (8.6-10.3); Chloride 93 mmol/L (101-111); EGFR African American 134.5 (>60); EGFR Non-African American 111.2 (>60); Globulin 2.5 g/dL (2-4); Glucose 129 mg/dL (70-100); Magnesium 1.8 mg/dL (1.9-2.7); Potassium 4.7 mmol/L (3.5-5.0); Sodium 128 mmol/L (135-145)
[2020-11-09] MEDS ORDERED: NS 0.9% 1000 ml BAG 1,000 ML IV ONE ×2 (20:50→22:36)
[2020-11-09 20:56] LABS: Troponin I 0.05 ng/mL (<0.03)
[2020-11-09 21:19] LABS: TSH Ultra Thyroid Stim Horm 0.02 mcIU/mL (0.34-5.60)
[2020-11-09] MEDS ORDERED: Magnesium Sulfate IV 1GM/100ML 1 GM/100 ML BAG IV ONE (22:23)
[2020-11-09] MEDS ORDERED: Dextrose 50% Syringe 50 ml 25 GM/50 ML SYRINGE IV PUSH PRN (22:33)
[2020-11-09 23:00] LABS: Free T4 0.59 ng/dL (0.61-1.12)
[2020-11-09 23:55] LABS: Troponin I 0.05 ng/mL (<0.03)
[2020-11-10 01:01] LABS: Total T3 45 ng/dL (87-178)
[2020-11-10 02:46] LABS: Troponin I 0.05 ng/mL (<0.03)
[2020-11-10 06:36] LABS: Albumin/Globulin Ratio 1.3 (1-3); BUN/Creatinine Ratio 43.5 (8-20); Calcium 8.3 mg/dL (8.6-10.3); EGFR African American 218.4 (>60); EGFR Non-African American 180.5 (>60); Globulin 2.4 g/dL (2-4); Magnesium 1.8 mg/dL (1.9-2.7); Total Protein 5.4 g/dL (6.4-8.9)
[2020-11-10] MEDS ORDERED: NS 0.9% 1000 ml BAG 1,000 ML IV SCH (07:15)
[2020-11-10] MEDS: Insulin GLARGINE 100 un/ml 10 ml VIAL SUBCUT SCH ×2 (08:32→20:48)
[2020-11-10] MEDS ORDERED: Gadoteridol (CONTRAST) 279.3 MG/ML 10 ML IV ONE (13:42)
[2020-11-10 14:17] LABS: BUN/Creatinine Ratio 36.4 (8-20); Blood Urea Nitrogen 20 mg/dL (6-24); CO2 Carbon Dioxide 17 mmol/L (22-32); Calcium 8.4 mg/dL (8.6-10.3); Chloride 94 mmol/L (101-111); EGFR African American 177.7 (>60); EGFR Non-African American 146.8 (>60); Glucose 242 mg/dL (70-100); Sodium 122 mmol/L (135-145)
[2020-11-10 14:51] LABS: Anion Gap 11 mmol/L (2-11)
[2020-11-10 17:00] LABS: Potassium Redraw 4.6 mmol/L (3.5-5.0)
[2020-11-10] MEDS ORDERED: [UNRECOGNIZED DRUG - OTHER] IV ONE (17:00)
[2020-11-10] MEDS ORDERED: IMMUNE GLOB IV SCH (17:00)
[2020-11-10] MEDS ORDERED: PRIVIGEN IV ONE (17:00)
[2020-11-10] MEDS ORDERED: IMMUNE GLOB IV ONE (17:00)
[2020-11-10] MEDS ORDERED: [UNRECOGNIZED DRUG - OTHER] IV SCH (17:00)
[2020-11-10] MEDS ORDERED: PRIVIGEN IV SCH (17:00)
[2020-11-11 07:16] LABS: Hematocrit 34 % (42-52); Mean Corpuscular HGB Conc 35 g/dL (31-36); Mean Corpuscular Hemoglobin 30 pg (27-31); Mean Corpuscular Volume 86 fL (80-94); Red Blood Count 3.94 10^6 /uL (4.18-5.48); Red Cell Distribution Width 16 % (10-15); White Blood Count 4.3 10^3/uL (3.5-10.8)
[2020-11-11 07:17] LABS: BUN/Creatinine Ratio 34.7 (8-20); Calcium 8.3 mg/dL (8.6-10.3); EGFR Non-African American 167.8 (>60); Magnesium 1.6 mg/dL (1.9-2.7); Potassium 3.9 mmol/L (3.5-5.0)
[2020-11-11] MEDS: Insulin GLARGINE 100 un/ml 10 ml VIAL SUBCUT SCH ×2 (09:30→20:28)
[2020-11-11 09:47] LABS: ABS Lymphocytes 0.6 10^3/ul (1.0-4.8); ABS Monocytes 0.2 10^3/ul (0-0.8); ABS Neutrophils 3.5 10^3/ul (1.5-7.7); Eosinophil % 0.3 %; Lymphocyte % 14.1 %; Mean Platelet Volume 6.5 fL (7.4-10.4); Nucleated Red Blood Cells % 0.1; Platelet Count 86 10^3/uL (150-450)
[2020-11-11] MEDS ORDERED: Gadoteridol (CONTRAST) 279.3 MG/ML 10 ML IV ONE (16:56)
[2020-11-11] MEDS ORDERED: Gadoteridol (CONTRAST) 279.3 MG/ML 10 ML IV SCH (17:00)
[2020-11-11] MEDS ORDERED: Cyanocobalamin INJ 1,000 MCG/ML VIAL 1 ML VIAL IM ONE (18:40)
[2020-11-11] MEDS: IMMUNE GLOB IV SCH (19:54)
[2020-11-11] MEDS: PRIVIGEN IV SCH (19:54)
[2020-11-11] MEDS: [UNRECOGNIZED DRUG - OTHER] IV SCH (19:54)
[2020-11-12 06:09] LABS: ABS Lymphocytes 0.7 10^3/ul (1.0-4.8); ABS Monocytes 0.2 10^3/ul (0-0.8); ABS Neutrophils 2.7 10^3/ul (1.5-7.7); Eosinophil % 0.3 %; Hematocrit 33 % (42-52); Hemoglobin 11.5 g/dL (14.0-18.0); Lymphocyte % 18.9 %; Mean Corpuscular HGB Conc 35 g/dL (31-36); Mean Corpuscular Hemoglobin 30 pg (27-31); Mean Corpuscular Volume 86 fL (80-94); Mean Platelet Volume 6.4 fL (7.4-10.4); Nucleated Red Blood Cells % 0.1; Platelet Count 90 10^3/uL (150-450); Red Blood Count 3.79 10^6 /uL (4.18-5.48); Red Cell Distribution Width 16 % (10-15); White Blood Count 3.6 10^3/uL (3.5-10.8)
[2020-11-12 06:29] LABS: BUN/Creatinine Ratio 32.7 (8-20); Calcium 8.3 mg/dL (8.6-10.3); EGFR African American 177.7 (>60); EGFR Non-African American 146.8 (>60); Magnesium 1.5 mg/dL (1.9-2.7); Potassium 3.9 mmol/L (3.5-5.0)
[2020-11-12] MEDS ORDERED: Magnesium Sulfate IV 3 GM in NS 0.9% 100 ml BAG 100 ML IVPB ONE (07:57)
[2020-11-12] MEDS: Insulin GLARGINE 100 un/ml 10 ml VIAL SUBCUT SCH ×2 (09:07→20:43)
[2020-11-12] MEDS ORDERED: Dextrose 50% Syringe 50 ml 25 GM/50 ML SYRINGE IV PUSH PRN (11:34)
[2020-11-12] MEDS ORDERED: Albuterol 2.5mg/3 ml (0.083%) NEB.SOLN INH ONE (12:13)
[2020-11-12] MEDS ORDERED: Magnesium Hydroxide LIQ 30 ML UDC PO ONE (14:47)
[2020-11-12] MEDS: IMMUNE GLOB IV SCH (18:23)
[2020-11-12] MEDS: [UNRECOGNIZED DRUG - OTHER] IV SCH (18:23)
[2020-11-12] MEDS: PRIVIGEN IV SCH (18:23)
[2020-11-13] MEDS ORDERED: Morphine 2 MG/ML SYRINGE IV ONE ×2 (03:29→07:31)
[2020-11-13] MEDS ORDERED: Iodixanol (CONTRAST) 320 MG/ML 100 ML SDV IV ONE (04:40)
[2020-11-13 05:26] LABS: ABS Lymphocytes 0.8 10^3/ul (1.0-4.8); ABS Monocytes 0.2 10^3/ul (0-0.8); ABS Neutrophils 2.6 10^3/ul (1.5-7.7); Eosinophil % 0.2 %; Hematocrit 32 % (42-52); Hemoglobin 11.2 g/dL (14.0-18.0); Lymphocyte % 21.4 %; Mean Corpuscular HGB Conc 35 g/dL (31-36); Mean Corpuscular Hemoglobin 31 pg (27-31); Mean Corpuscular Volume 87 fL (80-94); Mean Platelet Volume 6.2 fL (7.4-10.4); Nucleated Red Blood Cells % 0.5; Platelet Count 106 10^3/uL (150-450); Red Blood Count 3.62 10^6 /uL (4.18-5.48); Red Cell Distribution Width 16 % (10-15); White Blood Count 3.6 10^3/uL (3.5-10.8)
[2020-11-13 05:34] LABS: Albumin 2.3 g/dL (3.2-5.2); Calcium 8.2 mg/dL (8.6-10.3); Magnesium 1.7 mg/dL (1.9-2.7); Potassium 4.3 mmol/L (3.5-5.0); Total Bilirubin 0.6 mg/dL (0.2-1.0)
[2020-11-13 05:40] LABS: Albumin/Globulin Ratio 0.4 (1-3); BUN/Creatinine Ratio 33.3 (8-20); EGFR African American 193.9 (>60); EGFR Non-African American 160.2 (>60); Total Protein 8.3 g/dL (6.4-8.9)
[2020-11-13] MEDS ORDERED: Magnesium Sulfate 2 gm BAG 2 GM/50 ML BAG IVPB ONE (05:51)
[2020-11-13] MEDS: Insulin GLARGINE 100 un/ml 10 ml VIAL SUBCUT SCH ×2 (08:50→23:09)
[2020-11-13] MEDS ORDERED: NS 0.9% 500 ml BAG 500 ML IV ONE ×2 (09:36→16:01)
[2020-11-13 10:24] LABS: BUN/Creatinine Ratio 30.2 (8-20); Calcium 8.3 mg/dL (8.6-10.3); EGFR African American 185.4 (>60); EGFR Non-African American 153.3 (>60); Potassium 4.1 mmol/L (3.5-5.0)
[2020-11-13 10:39] LABS: TSH Ultra Thyroid Stim Horm 0.04 mcIU/mL (0.34-5.60)
[2020-11-13 12:52] LABS: Testosterone 24.61 ng/dL (240-950)
[2020-11-13] MEDS ORDERED: NS 0.9% 500 ml BAG 500 ML IV SCH (13:00)
[2020-11-13 13:06] LABS: Prolactin 6.3 ng/mL (1.0-20.0)
[2020-11-13 13:29] LABS: Follicle Stimulating Hormone 3.1 mIU/mL (1-20)
[2020-11-13 14:40] LABS: Urine Appearance Clear; Urine Bilirubin Negative (Negative); Urine Blood Negative (Negative); Urine Color Yellow; Urine Glucose 2+(150 mg/dL) (Negative); Urine Ketones Negative (Negative); Urine Nitrite Negative (Negative); Urine Protein Negative (Negative); Urine Specific Gravity 1.027 (1.010-1.030); Urine Urobilinogen Negative (Negative)
[2020-11-13 15:54] LABS: Calcium 8.9 mg/dL (8.6-10.3); Potassium 4.4 mmol/L (3.5-5.0)
[2020-11-13 16:00] LABS: BUN/Creatinine Ratio 27.6 (8-20); EGFR African American 167.1 (>60); EGFR Non-African American 138.1 (>60)
[2020-11-13 21:05] LABS: Calcium 8.5 mg/dL (8.6-10.3); Potassium 4.2 mmol/L (3.5-5.0)
[2020-11-13 21:10] LABS: BUN/Creatinine Ratio 26.8 (8-20); EGFR Non-African American 143.8 (>60)
[2020-11-14] MEDS ORDERED: NS 0.9% 500 ml BAG 500 ML IV SCH ×2 (03:00→15:00)
[2020-11-14 06:59] LABS: ABS Lymphocytes 0.9 10^3/ul (1.0-4.8); ABS Monocytes 0.2 10^3/ul (0-0.8); ABS Neutrophils 2.9 10^3/ul (1.5-7.7); Eosinophil % 0.3 %; Hematocrit 34 % (42-52); Lymphocyte % 21.1 %; Mean Corpuscular HGB Conc 35 g/dL (31-36); Mean Corpuscular Hemoglobin 31 pg (27-31); Mean Corpuscular Volume 87 fL (80-94); Mean Platelet Volume 6.3 fL (7.4-10.4); Nucleated Red Blood Cells % 0.2; Platelet Count 119 10^3/uL (150-450); Red Blood Count 3.92 10^6 /uL (4.18-5.48); Red Cell Distribution Width 16 % (10-15); White Blood Count 4.1 10^3/uL (3.5-10.8)
[2020-11-14 07:15] LABS: BUN/Creatinine Ratio 33.3 (8-20); Calcium 8.5 mg/dL (8.6-10.3); EGFR African American 207.9 (>60); EGFR Non-African American 171.8 (>60); Magnesium 1.7 mg/dL (1.9-2.7); Potassium 4.2 mmol/L (3.5-5.0)
[2020-11-14] MEDS: Insulin GLARGINE 100 un/ml 10 ml VIAL SUBCUT SCH ×2 (09:16→22:33)
[2020-11-14] MEDS: Morphine 2 MG/ML SYRINGE IV PRN (11:31)
[2020-11-14] MEDS: Sucralfate 1 gm SUSP 1 GM/10 ML UDC PO SCH ×3 (12:51→22:34)
[2020-11-14] MEDS ORDERED: Magnesium Sulfate 2 gm BAG 2 GM/50 ML BAG IVPB ONE (14:24)
[2020-11-14 20:42] LABS: Calcium 8.3 mg/dL (8.6-10.3); EGFR African American 151.9 (>60); EGFR Non-African American 125.5 (>60); Potassium 4.1 mmol/L (3.5-5.0)
[2020-11-15 07:27] LABS: BUN/Creatinine Ratio 33.3 (8-20); EGFR African American 181.5 (>60); Potassium 3.7 mmol/L (3.5-5.0)
[2020-11-15] MEDS: Sucralfate 1 gm SUSP 1 GM/10 ML UDC PO SCH ×4 (08:55→20:38)
[2020-11-15] MEDS: Insulin GLARGINE 100 un/ml 10 ml VIAL SUBCUT SCH ×2 (09:59→20:39)
[2020-11-15 15:05] LABS: BUN/Creatinine Ratio 35.7 (8-20); Calcium 8.7 mg/dL (8.6-10.3); EGFR Non-African American 143.8 (>60); Potassium 3.9 mmol/L (3.5-5.0)
[2020-11-16] MEDS: Calcium Carb (TUMS) 500 mg CHEW TAB PO PRN (03:13)
[2020-11-16 06:46] LABS: ABS Monocytes 0.2 10^3/ul (0-0.8); ABS Neutrophils 3.9 10^3/ul (1.5-7.7); Eosinophil % 0.1 %; Hematocrit 37 % (42-52); Hemoglobin 12.9 g/dL (14.0-18.0); Lymphocyte % 18.9 %; Mean Corpuscular HGB Conc 35 g/dL (31-36); Mean Corpuscular Hemoglobin 30 pg (27-31); Mean Corpuscular Volume 85 fL (80-94); Mean Platelet Volume 6.3 fL (7.4-10.4); Nucleated Red Blood Cells % 0.4; Platelet Count 121 10^3/uL (150-450); Red Blood Count 4.28 10^6 /uL (4.18-5.48); Red Cell Distribution Width 16 % (10-15); White Blood Count 5.1 10^3/uL (3.5-10.8)
[2020-11-16 06:47] LABS: BUN/Creatinine Ratio 32.6 (8-20); Calcium 8.4 mg/dL (8.6-10.3); EGFR African American 218.4 (>60); EGFR Non-African American 180.5 (>60); Magnesium 1.6 mg/dL (1.9-2.7)
[2020-11-16] MEDS: Sucralfate 1 gm SUSP 1 GM/10 ML UDC PO SCH ×4 (08:37→20:59)
[2020-11-16] MEDS: Insulin GLARGINE 100 un/ml 10 ml VIAL SUBCUT SCH ×2 (09:30→21:01)
[2020-11-17] MEDS: Calcium Carb (TUMS) 500 mg CHEW TAB PO PRN ×2 (00:03→17:42)
[2020-11-17] MEDS: Morphine 2 MG/ML SYRINGE IV PRN ×2 (00:04→19:43)
[2020-11-17] MEDS: Sucralfate 1 gm SUSP 1 GM/10 ML UDC PO SCH ×4 (07:49→20:18)
[2020-11-17] MEDS: Insulin GLARGINE 100 un/ml 10 ml VIAL SUBCUT SCH ×2 (07:57→20:30)
[2020-11-17 08:24] LABS: Methylmalonic Acid 0.14 nmol/mL (<=0.40)
[2020-11-17 11:39] LABS: Hematocrit 37 % (42-52); Hemoglobin 13.2 g/dL (14.0-18.0); Mean Corpuscular HGB Conc 35 g/dL (31-36); Mean Corpuscular Hemoglobin 30 pg (27-31); Mean Corpuscular Volume 85 fL (80-94); Mean Platelet Volume 6.2 fL (7.4-10.4); Platelet Count 154 10^3/uL (150-450); Red Blood Count 4.38 10^6 /uL (4.18-5.48); Red Cell Distribution Width 16 % (10-15); White Blood Count 6.1 10^3/uL (3.5-10.8)
[2020-11-17 11:48] LABS: BUN/Creatinine Ratio 35.8 (8-20); Calcium 8.6 mg/dL (8.6-10.3); EGFR African American 185.4 (>60); EGFR Non-African American 153.3 (>60); Magnesium 1.6 mg/dL (1.9-2.7)
[2020-11-17 12:28] LABS: Potassium 4.6 mmol/L (3.5-5.0)
[2020-11-17 14:45] LABS: Albumin 2.3 g/dL (3.4-4.7); Albumin/Globulin Ratio 0.43; Gamma Globulin 3.1 g/dL (0.6-1.6); Total Protein(PEP) 7.5 g/dL (6.3 - 7.9)
[2020-11-17 18:06] LABS: Anti-Glial/Neuronal Nuc Ab-1 A Negative titer (<1:240); Anti-Neuronal Nuclear Ab Type1 Negative titer (<1:240); Anti-Neuronal Nuclear Ab Type2 Negative titer (<1:240); Anti-Neuronal Nuclear Ab Type3 Negative titer (<1:240); CRMP-5 IgG Antibody Negative titer (<1:240); Purkinje Cell Cytoplasm Typ Tr Negative titer (<1:240); Purkinje Cell Cytoplasm Type 1 Negative titer (<1:240); Purkinje Cell Cytoplasm Type 2 Negative titer (<1:240)
[2020-11-18 03:41] VITALS: BP 113/70
[2020-11-18 06:33] LABS: Calcium 8.6 mg/dL (8.6-10.3); Magnesium 1.5 mg/dL (1.9-2.7); Potassium 4.3 mmol/L (3.5-5.0)
[2020-11-18 06:39] LABS: EGFR African American 198.3 (>60); EGFR Non-African American 163.9 (>60)
[2020-11-18] MEDS: Sucralfate 1 gm SUSP 1 GM/10 ML UDC PO SCH (08:18)
[2020-11-18 08:46] LABS: Hematocrit 45 % (42-52); Hemoglobin 15.4 g/dL (14.0-18.0); Mean Corpuscular HGB Conc 35 g/dL (31-36); Mean Corpuscular Hemoglobin 30 pg (27-31); Mean Corpuscular Volume 88 fL (80-94); Red Blood Count 5.06 10^6 /uL (4.18-5.48); White Blood Count 4.7 10^3/uL (3.5-10.8)
[2020-11-18 09:47] LABS: ABS Lymphocytes 1.1 10^3/ul (1.0-4.8); ABS Monocytes 0.2 10^3/ul (0-0.8); ABS Neutrophils 3.4 10^3/ul (1.5-7.7); Eosinophil % 0.6 %; Lymphocyte % 22.9 %; Mean Platelet Volume 6.2 fL (7.4-10.4); Nucleated Red Blood Cells % 0.9; Platelet Count 92 10^3/uL (150-450); Red Cell Distribution Width 16 % (10-15)
[2020-11-18 14:06] LABS: Renin 92 ng/mL/h
== END 2020-11-18 08:05 | DRG 95 ==
LOC: ED 15:44 → MEDTELE 22:25 → PMRU 11-14 15:55 → MEDTELE 11-14 16:28 → PMRU 11-14 20:05
PROVIDERS: ADMIT Student in an Organized Health Care Education/Training Program; ATTEND Internal Medicine

== ENCOUNTER 2020-11-17 13:14 | Inpatient (IN) ==
[2020-11-18] MEDS ORDERED: Senna TAB 8.6 mg TAB PO PRN (08:33)
[2020-11-18] MEDS: Insulin GLARGINE 100 un/ml 10 ml VIAL SUBCUT SCH ×3 (09:09→21:17)
[2020-11-18] MEDS: Sucralfate 1 gm SUSP 1 GM/10 ML UDC PO SCH ×3 (11:49→22:07)
[2020-11-18] MEDS ORDERED: Dextrose 50% Syringe 50 ml 25 GM/50 ML SYRINGE IV PUSH PRN (12:38)
[2020-11-19 04:47] LABS: Hematocrit 39 % (42-52); Hemoglobin 13.7 g/dL (14.0-18.0); Mean Corpuscular HGB Conc 35 g/dL (31-36); Mean Corpuscular Hemoglobin 30 pg (27-31); Mean Corpuscular Volume 86 fL (80-94); Mean Platelet Volume 6.3 fL (7.4-10.4); Platelet Count 131 10^3/uL (150-450); Red Blood Count 4.59 10^6 /uL (4.18-5.48); Red Cell Distribution Width 16 % (10-15); White Blood Count 5.2 10^3/uL (3.5-10.8)
[2020-11-19 05:07] LABS: Albumin 2.8 g/dL (3.2-5.2); Albumin/Globulin Ratio 0.5 (1-3); BUN/Creatinine Ratio 25.9 (8-20); Calcium 8.7 mg/dL (8.6-10.3); EGFR African American 167.1 (>60); EGFR Non-African American 138.1 (>60); Globulin 5.1 g/dL (2-4); Potassium 3.8 mmol/L (3.5-5.0); Total Bilirubin 0.9 mg/dL (0.2-1.0); Total Protein 7.9 g/dL (6.4-8.9)
[2020-11-19 05:11] LABS: ABS Lymphocytes 1.2 10^3/ul (1.0-4.8); ABS Monocytes 0.3 10^3/ul (0-0.8); ABS Neutrophils 3.7 10^3/ul (1.5-7.7); Eosinophil % 0.3 %; Lymphocyte % 23.3 %; Nucleated Red Blood Cells % 0.6
[2020-11-19] MEDS: Sucralfate 1 gm SUSP 1 GM/10 ML UDC PO SCH ×4 (07:30→21:00)
[2020-11-19] MEDS: Insulin GLARGINE 100 un/ml 10 ml VIAL SUBCUT SCH ×2 (08:14→21:01)
[2020-11-19] MEDS ORDERED: NS 0.9% 1000 ml BAG 1,000 ML IV SCH (10:00)
[2020-11-19] MEDS ORDERED: NS 0.9% 500 ml BAG 500 ML IV SCH ×2 (11:00→17:45)
[2020-11-20 07:22] LABS: Potassium 3.7 mmol/L (3.5-5.0)
[2020-11-20 07:27] LABS: BUN/Creatinine Ratio 36.4 (8-20); EGFR African American 229.9 (>60)
[2020-11-20] MEDS: Sucralfate 1 gm SUSP 1 GM/10 ML UDC PO SCH ×4 (07:30→20:33)
[2020-11-20] MEDS: Insulin GLARGINE 100 un/ml 10 ml VIAL SUBCUT SCH ×2 (09:35→20:17)
[2020-11-20] MEDS: CMC:Rosuvastatin 5 mg TAB (NF) PO SCH (19:45)
[2020-11-21 04:55] LABS: Albumin 2.9 g/dL (3.2-5.2); Albumin/Globulin Ratio 0.6 (1-3); Calcium 8.6 mg/dL (8.6-10.3); EGFR African American 151.9 (>60); EGFR Non-African American 125.5 (>60); Globulin 4.5 g/dL (2-4); Indirect Bilirubin 0.7 mg/dL (0.3-1.0); Total Protein 7.4 g/dL (6.4-8.9)
[2020-11-21] MEDS: Sucralfate 1 gm SUSP 1 GM/10 ML UDC PO SCH ×4 (07:29→20:05)
[2020-11-21] MEDS: Insulin GLARGINE 100 un/ml 10 ml VIAL SUBCUT SCH (09:34)
[2020-11-21] MEDS ORDERED: D5NS 0.9% 1000 ml BAG 1,000 ML IV SCH (12:00)
[2020-11-21] MEDS: CMC:Rosuvastatin 5 mg TAB (NF) PO SCH (19:12)
[2020-11-22] MEDS: Sucralfate 1 gm SUSP 1 GM/10 ML UDC PO SCH ×2 (07:30→11:45)
[2020-11-22] MEDS ORDERED: Insulin GLARGINE 100 un/ml 10 ml VIAL SUBCUT SCH (09:00)
[2020-11-22 09:40] VITALS: BP 122/60
[2020-11-22 10:35] LABS: Albumin 2.6 g/dL (3.2-5.2); Calcium 8.2 mg/dL (8.6-10.3); Indirect Bilirubin 0.6 mg/dL (0.3-1.0); Potassium 4.3 mmol/L (3.5-5.0)
[2020-11-22 10:41] LABS: Albumin/Globulin Ratio 0.7 (1-3); BUN/Creatinine Ratio 25.4 (8-20); EGFR African American 163.9 (>60); EGFR Non-African American 135.4 (>60); Globulin 3.8 g/dL (2-4); Total Protein 6.4 g/dL (6.4-8.9)
[2020-11-22 12:34] LABS: Hepatitis B Surface Antigen Nonreactive (Nonreactive)
[2020-11-22 12:40] LABS: Hepatitis A Ab IgM Negative (Negative); Hepatitis B Core IgM Nonreactive (Nonreactive)
[2020-11-22 12:51] LABS: Hepatitis B Surface Ab Immune (Immune)
[2020-11-22 12:52] LABS: Hepatitis C Antibody Negative (Negative)
[2020-11-23 15:31] LABS: Hepatitis Be Antibody Negative (Negative)
[2020-11-25 15:53] LABS: Hepatitis D Antibody Negative (Negative)
== END 2020-11-22 16:00 | disposition home or self-care (01) | DRG 95 ==
LOC: PMRU 11-18 08:23
PROVIDERS: ADMIT Physical Medicine & Rehabilitation; ATTEND Physical Medicine & Rehabilitation

== ENCOUNTER 2020-11-30 12:43 | Observation (INO) ==
[2020-11-30] MEDS ORDERED: NS 0.9% 1000 ml BAG 1,000 ML IV ONE (12:56)
[2020-11-30 13:57] LABS: Hematocrit 31 % (42-52); Hemoglobin 10.6 g/dL (14.0-18.0); Mean Corpuscular HGB Conc 35 g/dL (31-36); Mean Corpuscular Hemoglobin 30 pg (27-31); Mean Corpuscular Volume 86 fL (80-94); Mean Platelet Volume 6.4 fL (7.4-10.4); Platelet Count 149 10^3/uL (150-450); Red Blood Count 3.57 10^6 /uL (4.18-5.48); Red Cell Distribution Width 17 % (10-15); White Blood Count 5.4 10^3/uL (3.5-10.8)
[2020-11-30 14:12] LABS: ALT 114 U/L (7-52); AST 47 U/L (13-39); Albumin 2.8 g/dL (3.2-5.2); Albumin/Globulin Ratio 0.8 (1-3); Alkaline Phosphatase 175 U/L (34-104); Anion Gap 7 mmol/L (2-11); BUN/Creatinine Ratio 26.5 (8-20); Blood Urea Nitrogen 13 mg/dL (6-24); C Reactive Protein 18.92 mg/L (<8.01); CO2 Carbon Dioxide 27 mmol/L (22-32); Calcium 8.4 mg/dL (8.6-10.3); Chloride 93 mmol/L (101-111); Creatine Kinase 31 U/L (10-223); EGFR Non-African American 167.8 (>60); Globulin 3.3 g/dL (2-4); Glucose 230 mg/dL (70-100); Magnesium 1.4 mg/dL (1.9-2.7); Potassium 4.2 mmol/L (3.5-5.0); Sodium 127 mmol/L (135-145); Total Protein 6.1 g/dL (6.4-8.9)
[2020-11-30 14:19] LABS: ABS Monocytes 0.2 10^3/ul (0-0.8); ABS Neutrophils 4.2 10^3/ul (1.5-7.7); ABS Nucleated RBC 0.2 10^3/ul; Lymphocyte % 18.9 %; Nucleated Red Blood Cells % 4.3; Troponin I 0.03 ng/mL (<0.03)
[2020-11-30] MEDS ORDERED: Magnesium Sulfate IV 1GM/100ML 1 GM/100 ML BAG IV ONE (14:38)
[2020-11-30 15:00] LABS: Alcohol, S < 10 mg/dL (<10)
[2020-11-30 15:44] LABS: Urine Appearance Clear; Urine Bilirubin Negative (Negative); Urine Blood Negative (Negative); Urine Color Yellow; Urine Glucose 3+(>=500 mg/dL) (Negative); Urine Ketones Negative (Negative); Urine Nitrite Negative (Negative); Urine Protein Negative (Negative); Urine Specific Gravity 1.021 (1.010-1.030); Urine Urobilinogen Negative (Negative)
[2020-11-30 16:13] LABS: Urine Benzodiazepine Screen None Detected (None Detect); Urine Cannabinoids Screen Presumptive Positive (None Detect); Urine Opiates Screen None Detected (None Detect)
[2020-11-30] MEDS ORDERED: Dextrose 50% Syringe 50 ml 25 GM/50 ML SYRINGE IV PUSH PRN ×2 (16:39→16:41)
[2020-11-30] MEDS ORDERED: Calcium Carb (TUMS) 500 mg CHEW TAB PO PRN (16:41)
[2020-11-30] MEDS ORDERED: Lorazepam PYXIS KEY PRN (17:46)
[2020-11-30] MEDS ORDERED: LORazepam 2 mg VIAL 1 ml IV PUSH ONE (17:46)
[2020-11-30] MEDS ORDERED: Lorazepam PYXIS KEY ONE (18:12)
[2020-11-30] MEDS: NS 0.9% 1000 ml BAG 1,000 ML IV SCH (20:57)
[2020-11-30] MEDS ORDERED: Magic MouthWash1-BEN/MAAL/LIDO 180 ML BTL SWISH SPIT PRN (21:55)
[2020-11-30] MEDS: Sucralfate 1 gm SUSP 1 GM/10 ML UDC PO SCH (22:04)
[2020-12-01 07:56] VITALS: BP 143/73
[2020-12-01] MEDS: Sucralfate 1 gm SUSP 1 GM/10 ML UDC PO SCH ×2 (08:15→13:23)
[2020-12-01 08:22] LABS: Hematocrit 33 % (42-52); Hemoglobin 11.4 g/dL (14.0-18.0); Mean Corpuscular HGB Conc 35 g/dL (31-36); Mean Corpuscular Hemoglobin 30 pg (27-31); Mean Corpuscular Volume 87 fL (80-94); Mean Platelet Volume 6.5 fL (7.4-10.4); Platelet Count 144 10^3/uL (150-450); Red Cell Distribution Width 17 % (10-15)
[2020-12-01 08:35] LABS: Albumin 2.9 g/dL (3.2-5.2); Albumin/Globulin Ratio 0.9 (1-3); BUN/Creatinine Ratio 23.3 (8-20); Calcium 8.2 mg/dL (8.6-10.3); EGFR Non-African American 195.1 (>60); Globulin 3.3 g/dL (2-4); Total Bilirubin 1.1 mg/dL (0.2-1.0); Total Protein 6.2 g/dL (6.4-8.9)
[2020-12-01 10:18] LABS: ABS Lymphocytes 1.5 10^3/ul (1.0-4.8); ABS Monocytes 0.3 10^3/ul (0-0.8); ABS Neutrophils 5.2 10^3/ul (1.5-7.7); ABS Nucleated RBC 0.4 10^3/ul; Eosinophil % 0.3 %; Lymphocyte % 20.7 %; Nucleated Red Blood Cells % 5.5
[2020-12-01 10:19] LABS: Polychromasia 1+
[2020-12-01] MEDS: NS 0.9% 1000 ml BAG 1,000 ML IV SCH (11:01)
[2020-12-01] MEDS ORDERED: Gadoteridol (CONTRAST) 279.3 MG/ML 10 ML IV SCH (11:18)
== END 2020-12-01 16:24 | disposition home or self-care (01) ==
LOC: ED 12:43 → INTOOBSV 18:57 → MEDTELE 18:57
PROVIDERS: ADMIT Surgery; ATTEND Internal Medicine Hematology & Oncology